=== PATIENT | male | born 1960 | race African-American/Black ===

== ENCOUNTER 2021-03-06 10:15 | Day surgery (SDC) | payer OTHER ==
[2021-03-06] MEDS ORDERED: FERRIC CARBOXYMALTOSE 750 MG in SODIUM CHLORIDE 250 ML IVPB ONE (10:30)
[2021-03-06 13:12] VITALS: BP 129/68; PULSE 85; TEMP 98
== END 2021-03-06 12:35 | disposition home or self-care (01) ==
LOC: FINFUSION 10:15 → FM/S 10:20 → FINFUSION 12:35
PROVIDERS: ATTEND Family Medicine
PROC: 3E033GC Introduction of Other Therapeutic Substance into Peripheral Vein, Percutaneous Approach (ICD-10-PCS; principal; 2021-03-06)
DX: D50.9 Iron deficiency anemia, unspecified (principal)
CPT/HCPCS: 96365; J1439

== ENCOUNTER 2021-03-13 10:53 | Day surgery (SDC) | payer OTHER ==
[2021-03-13] MEDS ORDERED: FERRIC CARBOXYMALTOSE 750 MG in SODIUM CHLORIDE 250 ML IVPB ONE (11:30)
[2021-03-13 12:23] VITALS: BP 119/73; PULSE 88; TEMP 98.4
== END 2021-03-13 12:40 | disposition home or self-care (01) ==
LOC: FINFUSION 10:53 → FM/S 10:58 → FINFUSION 12:40
PROVIDERS: ATTEND Family Medicine
PROC: 3E033GC Introduction of Other Therapeutic Substance into Peripheral Vein, Percutaneous Approach (ICD-10-PCS; principal; 2021-03-13)
DX: D64.9 Anemia, unspecified (principal); I10 Essential (primary) hypertension; K21.9 Gastro-esophageal reflux disease without esophagitis; J45.909 Unspecified asthma, uncomplicated; F06.4 Anxiety disorder due to known physiological condition
CPT/HCPCS: 96365; J1439

== ENCOUNTER 2021-09-14 13:02 | Inpatient (IN) | payer OTHER ==
[2021-09-14] MEDS ORDERED: NICOTINE 10 MG CARTRIDGE (INHALER) IH PRN (15:13)
[2021-09-14] MEDS ORDERED: ONDANSETRON *ODT* 4 MG TABLET SL PRN (15:13)
[2021-09-14] MEDS ORDERED: LOPERAMIDE HCL 2 MG CAPSULE PO PRN (15:13)
[2021-09-14] MEDS ORDERED: MENTHOL/PHENOL 1 EACH UD MM PRN (15:13)
[2021-09-14] MEDS ORDERED: MAG HYDROX/AL HYDROX/SIMETH 30 ML UNIT-DOSE CUP PO PRN (15:13)
[2021-09-14] MEDS ORDERED: ACETAMINOPHEN 325 MG TABLET (FP) PO PRN (15:13)
[2021-09-14] MEDS ORDERED: BISMUTH SUBSALICYLATE 524 MG/30 ML PO PRN (15:13)
[2021-09-14] MEDS ORDERED: MAGNESIUM CITRATE 300 ML BOTTLE PO PRN (15:13)
[2021-09-14] MEDS ORDERED: chlordiazePOXIDE HCL 25 MG CAPSULE PO PRN (15:13)
[2021-09-14] MEDS ORDERED: METHOCARBAMOL 500 MG TABLET PO PRN (15:13)
[2021-09-14] MEDS ORDERED: MAGNESIUM HYDROX 2400MG/30ML ORAL SUSPENSION 30 ML CUP PO PRN (15:13)
[2021-09-14] MEDS ORDERED: IBUPROFEN 400 MG TABLET (FP) PO PRN (15:13)
[2021-09-14] MEDS ORDERED: FLU VACC QS2021-22(6MOS UP)/PF 60 MCG/0.5 ML SYRINGE IM ONE (15:18)
[2021-09-14 15:41] VITALS: BMI 35.6
[2021-09-14] MEDS ORDERED: WITCH HAZEL 50% (TUCKS) 40 PAD/JAR PAD TP PRN (16:49)
[2021-09-14] MEDS ORDERED: cloNIDine HCL 0.1 MG TABLET PO ONE (18:38)
[2021-09-14] MEDS: hydrOXYzine PAMOATE 25 MG CAPSULE (FP) PO SCH ×2 (18:46→22:21)
[2021-09-14] MEDS: ATORVASTATIN CA 40 MG TABLET (FP) PO SCH (22:21)
[2021-09-14] MEDS: chlordiazePOXIDE HCL 25 MG CAPSULE PO SCH (22:21)
[2021-09-14] MEDS: MELATONIN 5 MG TABLETS PO SCH (22:21)
[2021-09-14] MEDS: THIAMINE HCL 100 MG TABLET (FP) PO SCH (22:21)
[2021-09-14] MEDS: ACETAMINOPHEN 325 MG TABLET (FP) PO PRN (22:23)
[2021-09-14] MEDS ORDERED: METOPROLOL TARTRATE 50 MG TABLET (FP) PO ONE (23:59)
[2021-09-15] MEDS: chlordiazePOXIDE HCL 25 MG CAPSULE PO SCH ×4 (05:53→22:13)
[2021-09-15] MEDS: hydrOXYzine PAMOATE 25 MG CAPSULE (FP) PO SCH ×5 (05:53→22:13)
[2021-09-15] MEDS: ACETAMINOPHEN 325 MG TABLET (FP) PO PRN (05:54)
[2021-09-15] MEDS: TAMSULOSIN HCL 0.4 MG CAP PO SCH (07:22)
[2021-09-15 10:01] LABS: HEMATOCRIT 31.1 % (35.4-49); HEMOGLOBIN 10.9 GM/dL (11.7-16.9); MEAN CELL VOLUME 108.5 fl (80-96); MEAN PLT VOLUME 10.1 fl (7.5-11.1); PLATELET COUNT 93 10^3/uL (134-434); RBC 2.87 M/mm3 (4.00-5.60); RDW 14.1 % (11.9-15.9); WHITE BLOOD COUNT 4.3 K/mm3 (4.0-10.0)
[2021-09-15 10:03] LABS: CALCIUM 8.3 mg/dL (8.5-10.1)
[2021-09-15 10:04] LABS: ALBUMIN 2.8 g/dl (3.4-5.0); BLOOD UREA NITROGEN 12.6 mg/dL (7-18)
[2021-09-15 10:08] LABS: BILIRUBIN,TOTAL 1.2 mg/dL (0.2-1); TOT PROT 6.3 g/dl (6.4-8.2)
[2021-09-15] MEDS: PRENATAL VITAMINS W/ FOLIC ACID TABLET (FP) PO SCH (10:16)
[2021-09-15] MEDS: amLODIPine BESYLATE 5 MG TABLET (FP) PO SCH (10:17)
[2021-09-15] MEDS: ASPIRIN COATED 81 MG TABLET.EC PO SCH (10:21)
[2021-09-15] MEDS ORDERED: PNEUMOCOCCAL 23 VACCINE 0.5 ML VIAL IM ONE (12:00)
[2021-09-15] MEDS ORDERED: FLU VACC QS2021-22(6MOS UP)/PF 60 MCG/0.5 ML SYRINGE IM ONE (12:00)
[2021-09-15] MEDS ORDERED: PNEUMOC 13-VAL CONJ-DIP CRM/PF 0.5 ML DISP.SYRIN IM ONE (12:00)
[2021-09-15] MEDS: FERROUS SO4 325 MG TABLET (FP) PO SCH (15:43)
[2021-09-15] MEDS: LOSARTAN POTASSIUM 50 MG TABLET PO SCH (15:43)
[2021-09-15] MEDS: ATORVASTATIN CA 40 MG TABLET (FP) PO SCH (22:13)
[2021-09-15] MEDS: MELATONIN 5 MG TABLETS PO SCH (22:13)
[2021-09-15] MEDS: THIAMINE HCL 100 MG TABLET (FP) PO SCH (22:13)
[2021-09-16] MEDS: hydrOXYzine PAMOATE 25 MG CAPSULE (FP) PO SCH ×5 (05:50→22:48)
[2021-09-16] MEDS: chlordiazePOXIDE HCL 25 MG CAPSULE PO SCH ×4 (05:50→22:48)
[2021-09-16] MEDS: ACETAMINOPHEN 325 MG TABLET (FP) PO PRN ×2 (05:52→22:49)
[2021-09-16] MEDS: TAMSULOSIN HCL 0.4 MG CAP PO SCH (07:06)
[2021-09-16 10:08] LABS: SARS-CoV-2 NAA Not Detected (Not Detected)
[2021-09-16] MEDS: ASPIRIN COATED 81 MG TABLET.EC PO SCH (10:14)
[2021-09-16] MEDS: LOSARTAN POTASSIUM 50 MG TABLET PO SCH (10:14)
[2021-09-16] MEDS: PRENATAL VITAMINS W/ FOLIC ACID TABLET (FP) PO SCH (10:14)
[2021-09-16] MEDS: amLODIPine BESYLATE 5 MG TABLET (FP) PO SCH (10:15)
[2021-09-16] MEDS: FERROUS SO4 325 MG TABLET (FP) PO SCH (10:15)
[2021-09-16] MEDS: PHENYLEPHRINE HCL/COCOA BUTTER SUPPOSITORY RC PRN (10:18)
[2021-09-16 14:10] LABS: CALCIUM 8.3 mg/dL (8.5-10.1)
[2021-09-16 14:11] LABS: BASO % 1.1 % (0-2.0); EOS % 9.8 % (0-4.5); HEMATOCRIT 31.2 % (35.4-49); HEMOGLOBIN 10.7 GM/dL (11.7-16.9); LYMPH % 33.9 % (8-40); MCH 37.6 pg (25.7-33.7); MCHC 34.3 g/dl (32.0-35.9); MEAN CELL VOLUME 109.6 fl (80-96); MEAN PLT VOLUME 9.8 fl (7.5-11.1); MONO % 10.1 % (3.8-10.2); NEUT % 45.1 % (42.8-82.8); PLATELET COUNT 84 10^3/uL (134-434); RBC 2.85 M/mm3 (4.00-5.60); RDW 14.6 % (11.9-15.9); WHITE BLOOD COUNT 4.3 K/mm3 (4.0-10.0)
[2021-09-16 14:11] LABS: ALBUMIN 2.8 g/dl (3.4-5.0); BLOOD UREA NITROGEN 10.6 mg/dL (7-18)
[2021-09-16 14:14] LABS: CREATININE 0.8 mg/dL (0.55-1.3)
[2021-09-16 14:16] LABS: BILIRUBIN,TOTAL 0.7 mg/dL (0.2-1); TOT PROT 6.2 g/dl (6.4-8.2)
[2021-09-16 14:51] LABS: ANISOCYTOSIS 2+; MACROCYTOSIS 2+
[2021-09-16] MEDS ORDERED: METOPROLOL TARTRATE 25 MG TABLET (FP) PO ONE (21:27)
[2021-09-16] MEDS: ATORVASTATIN CA 40 MG TABLET (FP) PO SCH (22:48)
[2021-09-16] MEDS: MELATONIN 5 MG TABLETS PO SCH (22:48)
[2021-09-16] MEDS: THIAMINE HCL 100 MG TABLET (FP) PO SCH (22:48)
[2021-09-17] MEDS ORDERED: chlordiazePOXIDE HCL 10 MG CAPSULE PO PRN
[2021-09-17] MEDS: chlordiazePOXIDE HCL 10 MG CAPSULE PO SCH ×4 (07:08→23:28)
[2021-09-17] MEDS: hydrOXYzine PAMOATE 25 MG CAPSULE (FP) PO SCH ×5 (07:09→23:28)
[2021-09-17] MEDS: TAMSULOSIN HCL 0.4 MG CAP PO SCH (07:09)
[2021-09-17] MEDS: LOSARTAN POTASSIUM 50 MG TABLET PO SCH (10:22)
[2021-09-17] MEDS: PRENATAL VITAMINS W/ FOLIC ACID TABLET (FP) PO SCH (10:22)
[2021-09-17] MEDS: ASPIRIN COATED 81 MG TABLET.EC PO SCH (10:22)
[2021-09-17] MEDS: amLODIPine BESYLATE 5 MG TABLET (FP) PO SCH (10:22)
[2021-09-17] MEDS: ACETAMINOPHEN 325 MG TABLET (FP) PO PRN ×2 (10:24→18:14)
[2021-09-17] MEDS: PHENYLEPHRINE HCL/COCOA BUTTER SUPPOSITORY RC PRN (10:25)
[2021-09-17] MEDS: FERROUS SO4 325 MG TABLET (FP) PO SCH (10:26)
[2021-09-17 12:08] LABS: SARS-CoV-2 NAA Not Detected (Not Detected)
[2021-09-17] MEDS ORDERED: cloNIDine HCL 0.1 MG TABLET PO ONE (17:23)
[2021-09-17] MEDS: THIAMINE HCL 100 MG TABLET (FP) PO SCH (23:28)
[2021-09-17] MEDS: MELATONIN 5 MG TABLETS PO SCH (23:29)
[2021-09-17] MEDS: ATORVASTATIN CA 40 MG TABLET (FP) PO SCH (23:29)
[2021-09-18] MEDS ORDERED: chlordiazePOXIDE HCL 10 MG CAPSULE PO SCH (05:00)
[2021-09-18] MEDS: hydrOXYzine PAMOATE 25 MG CAPSULE (FP) PO SCH ×2 (05:28→11:03)
[2021-09-18] MEDS: amLODIPine BESYLATE 10 MG TABLET (FP) PO SCH ×2 (05:28→11:03)
[2021-09-18] MEDS: ACETAMINOPHEN 325 MG TABLET (FP) PO PRN (05:30)
[2021-09-18] MEDS: TAMSULOSIN HCL 0.4 MG CAP PO SCH (07:00)
[2021-09-18 09:15] VITALS: BP 152/95; PULSE 79; TEMP 98
[2021-09-18] MEDS: PRENATAL VITAMINS W/ FOLIC ACID TABLET (FP) PO SCH (11:03)
[2021-09-18] MEDS: FERROUS SO4 325 MG TABLET (FP) PO SCH (11:04)
[2021-09-18] MEDS: LOSARTAN POTASSIUM 50 MG TABLET PO SCH (11:04)
[2021-09-18] MEDS: ASPIRIN COATED 81 MG TABLET.EC PO SCH (11:04)
[2021-09-19] MEDS ORDERED: chlordiazePOXIDE HCL 10 MG CAPSULE PO ONE (05:00)
== END 2021-09-18 11:08 | disposition home or self-care (01) | DRG 775 ==
LOC: YASAS 13:02 → Y3N 17:33
PROVIDERS: ADMIT Allergy & Immunology; ATTEND Allergy & Immunology
PROC: HZ2ZZZZ Detoxification Services for Substance Abuse Treatment (ICD-10-PCS; principal; 2021-09-14)
DX: F10.230 Alcohol dependence with withdrawal, uncomplicated (principal); F12.20 Cannabis dependence, uncomplicated; F17.210 Nicotine dependence, cigarettes, uncomplicated; F25.9 Schizoaffective disorder, unspecified; D61.818 Other pancytopenia; G20 Parkinson's disease; I10 Essential (primary) hypertension; N40.0 Benign prostatic hyperplasia without lower urinary tract symptoms; K64.9 Unspecified hemorrhoids; R74.8 Abnormal levels of other serum enzymes; E66.9 Obesity, unspecified; Z68.35 Body mass index [BMI] 35.0-35.9, adult
CPT/HCPCS: 36415; 80053; 85025; 85027; 86780; C9803; J0735; U0003; U0005

== ENCOUNTER 2022-01-30 14:21 | Inpatient (IN) | payer OTHER ==
[2022-01-30 18:00] VITALS: BMI 26.6
[2022-01-30] MEDS ORDERED: MAG HYDROX/AL HYDROX/SIMETH 30 ML UNIT-DOSE CUP PO PRN (19:21)
[2022-01-30] MEDS ORDERED: BENZOCAINE/MENTHOL (CHLORASEPTIC ) LOZENGE MM PRN (19:21)
[2022-01-30] MEDS ORDERED: LOPERAMIDE HCL 2 MG CAPSULE PO PRN (19:21)
[2022-01-30] MEDS ORDERED: MAGNESIUM CITRATE 300 ML BOTTLE PO PRN (19:21)
[2022-01-30] MEDS ORDERED: MAGNESIUM HYDROX 2400MG/30ML ORAL SUSPENSION 30 ML CUP PO PRN (19:21)
[2022-01-30] MEDS ORDERED: BISMUTH SUBSALICYLATE 524 MG/30 ML PO PRN (19:21)
[2022-01-30] MEDS ORDERED: ONDANSETRON *ODT* 4 MG TABLET SL PRN (19:21)
[2022-01-30] MEDS ORDERED: chlordiazePOXIDE HCL 25 MG CAPSULE PO PRN (19:21)
[2022-01-30] MEDS ORDERED: DICYCLOMINE HCL 10 MG CAPSULE PO PRN (19:21)
[2022-01-30] MEDS ORDERED: IBUPROFEN 400 MG TABLET (FP) PO PRN (19:21)
[2022-01-30] MEDS: hydrOXYzine PAMOATE 25 MG CAPSULE (FP) PO SCH (21:36)
[2022-01-30] MEDS: MELATONIN 5 MG TABLETS PO SCH (21:36)
[2022-01-30] MEDS: ATORVASTATIN CA 40 MG TABLET (FP) PO SCH (21:37)
[2022-01-30] MEDS: THIAMINE HCL 100 MG TABLET (FP) PO SCH (21:43)
[2022-01-30] MEDS: chlordiazePOXIDE HCL 25 MG CAPSULE PO SCH (22:26)
[2022-01-31] MEDS: hydrOXYzine PAMOATE 25 MG CAPSULE (FP) PO SCH ×5 (05:23→23:37)
[2022-01-31] MEDS: chlordiazePOXIDE HCL 25 MG CAPSULE PO SCH ×4 (05:23→23:37)
[2022-01-31] MEDS: TAMSULOSIN HCL 0.4 MG CAP PO SCH (10:19)
[2022-01-31] MEDS: amLODIPine BESYLATE 5 MG TABLET (FP) PO SCH (10:19)
[2022-01-31] MEDS: ASPIRIN COATED 81 MG TABLET.EC PO SCH (10:19)
[2022-01-31] MEDS: METHOCARBAMOL 500 MG TABLET PO PRN (10:20)
[2022-01-31] MEDS: PRENATAL VITAMINS W/ FOLIC ACID TABLET (FP) PO SCH (10:20)
[2022-01-31] MEDS: HYDROCORTISONE ACETATE 25 MG/SUPP.RECT PR SCH (10:25)
[2022-01-31 11:13] LABS: HEMATOCRIT 31.1 % (35.4-49); HEMOGLOBIN 10.5 GM/dL (11.7-16.9); MCH 37.4 pg (25.7-33.7); MCHC 33.7 g/dl (32.0-35.9); MEAN CELL VOLUME 110.9 fl (80-96); MEAN PLT VOLUME 8.8 fl (7.5-11.1); PLATELET COUNT 101 10^3/uL (134-434); RBC 2.81 M/mm3 (4.00-5.60); RDW 15.4 % (11.9-15.9); WHITE BLOOD COUNT 2.6 K/mm3 (4.0-10.0)
[2022-01-31 12:11] LABS: CALCIUM 8.5 mg/dL (8.5-10.1)
[2022-01-31 12:12] LABS: ALBUMIN 2.8 g/dl (3.4-5.0); BLOOD UREA NITROGEN 4.9 mg/dL (7-18)
[2022-01-31 12:15] LABS: CREATININE 0.7 mg/dL (0.55-1.3)
[2022-01-31 12:16] LABS: BILIRUBIN,TOTAL 1.1 mg/dL (0.2-1)
[2022-01-31 12:17] LABS: TOT PROT 6.3 g/dl (6.4-8.2)
[2022-01-31] MEDS: ATORVASTATIN CA 40 MG TABLET (FP) PO SCH (23:36)
[2022-01-31] MEDS: THIAMINE HCL 100 MG TABLET (FP) PO SCH (23:37)
[2022-01-31] MEDS: MELATONIN 5 MG TABLETS PO SCH (23:37)
[2022-02-01] MEDS: chlordiazePOXIDE HCL 25 MG CAPSULE PO SCH ×4 (05:14→22:27)
[2022-02-01] MEDS: hydrOXYzine PAMOATE 25 MG CAPSULE (FP) PO SCH ×5 (05:14→22:27)
[2022-02-01] MEDS: TAMSULOSIN HCL 0.4 MG CAP PO SCH (07:40)
[2022-02-01] MEDS: ACETAMINOPHEN 325 MG TABLET (FP) PO PRN ×2 (08:05→17:48)
[2022-02-01] MEDS: METHOCARBAMOL 500 MG TABLET PO PRN ×2 (08:06→22:29)
[2022-02-01] MEDS: amLODIPine BESYLATE 5 MG TABLET (FP) PO SCH (10:11)
[2022-02-01] MEDS: PRENATAL VITAMINS W/ FOLIC ACID TABLET (FP) PO SCH (10:11)
[2022-02-01] MEDS: ASPIRIN COATED 81 MG TABLET.EC PO SCH (10:11)
[2022-02-01] MEDS: IBUPROFEN 600 MG TABLET (FP) PO PRN (10:12)
[2022-02-01] MEDS: HYDROCORTISONE ACETATE 25 MG/SUPP.RECT PR SCH (10:13)
[2022-02-01] MEDS: NICOTINE 10 MG CARTRIDGE (INHALER) IH PRN (11:59)
[2022-02-01] MEDS: HYDROCHLOROTHIAZIDE 25 MG TABLET (FP) PO SCH (12:03)
[2022-02-01] MEDS: ATORVASTATIN CA 40 MG TABLET (FP) PO SCH (22:26)
[2022-02-01] MEDS: MELATONIN 5 MG TABLETS PO SCH (22:27)
[2022-02-01] MEDS: THIAMINE HCL 100 MG TABLET (FP) PO SCH (22:27)
[2022-02-02] MEDS ORDERED: chlordiazePOXIDE HCL 10 MG CAPSULE PO PRN
[2022-02-02] MEDS: NICOTINE 10 MG CARTRIDGE (INHALER) IH PRN (04:02)
[2022-02-02] MEDS: hydrOXYzine PAMOATE 25 MG CAPSULE (FP) PO SCH ×5 (06:15→22:35)
[2022-02-02] MEDS: chlordiazePOXIDE HCL 10 MG CAPSULE PO SCH ×4 (06:15→22:35)
[2022-02-02] MEDS: ACETAMINOPHEN 325 MG TABLET (FP) PO PRN ×2 (06:17→22:38)
[2022-02-02] MEDS: amLODIPine BESYLATE 5 MG TABLET (FP) PO SCH (10:42)
[2022-02-02] MEDS: LOSARTAN POTASSIUM 50 MG TABLET PO SCH (10:42)
[2022-02-02] MEDS: TAMSULOSIN HCL 0.4 MG CAP PO SCH (10:42)
[2022-02-02] MEDS: PRENATAL VITAMINS W/ FOLIC ACID TABLET (FP) PO SCH (10:42)
[2022-02-02] MEDS: HYDROCHLOROTHIAZIDE 25 MG TABLET (FP) PO SCH (10:42)
[2022-02-02] MEDS: ASPIRIN COATED 81 MG TABLET.EC PO SCH (10:42)
[2022-02-02] MEDS: IBUPROFEN 600 MG TABLET (FP) PO PRN (10:43)
[2022-02-02] MEDS: HYDROCORTISONE ACETATE 25 MG/SUPP.RECT PR SCH ×2 (10:44→23:38)
[2022-02-02] MEDS: METHOCARBAMOL 500 MG TABLET PO PRN (10:48)
[2022-02-02 11:41] LABS: EOS % 8.7 % (0-4.5); HEMATOCRIT 31.7 % (35.4-49); HEMOGLOBIN 10.6 GM/dL (11.7-16.9); MCH 37.8 pg (25.7-33.7); MCHC 33.4 g/dl (32.0-35.9); MEAN CELL VOLUME 113.4 fl (80-96); MEAN PLT VOLUME 9.2 fl (7.5-11.1); MONO % 15.5 % (3.8-10.2); NEUT % 43.8 % (42.8-82.8); PLATELET COUNT 97 10^3/uL (134-434); RDW 15.7 % (11.9-15.9); WHITE BLOOD COUNT 3.6 K/mm3 (4.0-10.0)
[2022-02-02 13:36] LABS: ANISOCYTOSIS 3+; MACROCYTOSIS 3+
[2022-02-02] MEDS: MELATONIN 5 MG TABLETS PO SCH (22:35)
[2022-02-02] MEDS: THIAMINE HCL 100 MG TABLET (FP) PO SCH (22:35)
[2022-02-02] MEDS: ATORVASTATIN CA 40 MG TABLET (FP) PO SCH (22:35)
[2022-02-03] MEDS: hydrOXYzine PAMOATE 25 MG CAPSULE (FP) PO SCH ×5 (05:05→22:21)
[2022-02-03] MEDS: chlordiazePOXIDE HCL 10 MG CAPSULE PO SCH ×2 (05:05→18:18)
[2022-02-03] MEDS: ACETAMINOPHEN 325 MG TABLET (FP) PO PRN ×2 (05:06→10:46)
[2022-02-03] MEDS: ASPIRIN COATED 81 MG TABLET.EC PO SCH (10:42)
[2022-02-03] MEDS: HYDROCHLOROTHIAZIDE 25 MG TABLET (FP) PO SCH (10:42)
[2022-02-03] MEDS: amLODIPine BESYLATE 5 MG TABLET (FP) PO SCH (10:42)
[2022-02-03] MEDS: LOSARTAN POTASSIUM 50 MG TABLET PO SCH (10:42)
[2022-02-03] MEDS: TAMSULOSIN HCL 0.4 MG CAP PO SCH (10:42)
[2022-02-03] MEDS: PRENATAL VITAMINS W/ FOLIC ACID TABLET (FP) PO SCH (10:42)
[2022-02-03] MEDS: MELATONIN 5 MG TABLETS PO SCH (22:21)
[2022-02-03] MEDS: ATORVASTATIN CA 40 MG TABLET (FP) PO SCH (22:21)
[2022-02-03] MEDS: THIAMINE HCL 100 MG TABLET (FP) PO SCH (22:21)
[2022-02-03] MEDS: HYDROCORTISONE ACETATE 25 MG/SUPP.RECT PR SCH (22:22)
[2022-02-04] MEDS ORDERED: chlordiazePOXIDE HCL 10 MG CAPSULE PO ONE (05:00)
[2022-02-04] MEDS: hydrOXYzine PAMOATE 25 MG CAPSULE (FP) PO SCH ×2 (05:47→10:10)
[2022-02-04] MEDS: ACETAMINOPHEN 325 MG TABLET (FP) PO PRN (05:49)
[2022-02-04] MEDS: TAMSULOSIN HCL 0.4 MG CAP PO SCH (07:47)
[2022-02-04 09:38] VITALS: BP 147/83; PULSE 69; TEMP 96.9
[2022-02-04] MEDS: PRENATAL VITAMINS W/ FOLIC ACID TABLET (FP) PO SCH (10:10)
[2022-02-04] MEDS: HYDROCHLOROTHIAZIDE 25 MG TABLET (FP) PO SCH (10:10)
[2022-02-04] MEDS: amLODIPine BESYLATE 5 MG TABLET (FP) PO SCH (10:10)
[2022-02-04] MEDS: LOSARTAN POTASSIUM 50 MG TABLET PO SCH (10:10)
[2022-02-04] MEDS: ASPIRIN COATED 81 MG TABLET.EC PO SCH (10:10)
== END 2022-02-04 10:18 | disposition home or self-care (01) | DRG 774 ==
LOC: YASAS 14:21 → Y6N 19:51
PROVIDERS: ADMIT Allergy & Immunology; ATTEND Surgery
PROC: HZ2ZZZZ Detoxification Services for Substance Abuse Treatment (ICD-10-PCS; principal; 2022-01-30)
DX: F10.230 Alcohol dependence with withdrawal, uncomplicated (principal); F14.20 Cocaine dependence, uncomplicated; F12.20 Cannabis dependence, uncomplicated; F17.210 Nicotine dependence, cigarettes, uncomplicated; F25.9 Schizoaffective disorder, unspecified; G20 Parkinson's disease; E78.5 Hyperlipidemia, unspecified; I10 Essential (primary) hypertension; K64.9 Unspecified hemorrhoids; N40.0 Benign prostatic hyperplasia without lower urinary tract symptoms
CPT/HCPCS: 36415; 80053; 85025; 85027; 86780; C9803-CS; U0003; U0005

== ENCOUNTER 2022-09-20 19:52 | Inpatient (IN) | payer OTHER ==
[2022-09-20 20:47] VITALS: BMI 37.2
[2022-09-20] MEDS ORDERED: DICYCLOMINE HCL 10 MG CAPSULE PO PRN (21:21)
[2022-09-20] MEDS ORDERED: MAG HYDROX/AL HYDROX/SIMETH 30 ML UNIT-DOSE CUP PO PRN (21:21)
[2022-09-20] MEDS ORDERED: BENZOCAINE/MENTHOL (CHLORASEPTIC ) LOZENGE MM PRN (21:21)
[2022-09-20] MEDS ORDERED: NICOTINE POLACRILEX 2 MG GUM BUC PRN (21:21)
[2022-09-20] MEDS ORDERED: P-EPHED 60MG/TRIPROLIDI 2.5MG TABLET PO PRN (21:21)
[2022-09-20] MEDS ORDERED: POLYETHYLENE GLYCOL (HEALTHYLAX) 3350 17 GM PACKET PO PRN (21:21)
[2022-09-20] MEDS ORDERED: MAGNESIUM HYDROX 2400MG/30ML ORAL SUSPENSION 30 ML CUP PO PRN (21:21)
[2022-09-20] MEDS ORDERED: MELATONIN 5 MG TABLETS PO PRN (21:21)
[2022-09-20] MEDS ORDERED: LOPERAMIDE HCL 2 MG CAPSULE PO PRN (21:21)
[2022-09-20] MEDS ORDERED: guaiFENesin 200 MG/10 ML 10 ML UNIT-DOSE CUPS PO PRN (21:21)
[2022-09-20] MEDS ORDERED: hydrOXYzine PAMOATE 25 MG CAPSULE (FP) PO PRN (21:21)
[2022-09-20] MEDS ORDERED: ONDANSETRON *ODT* 4 MG TABLET SL PRN (21:21)
[2022-09-20] MEDS ORDERED: BISMUTH SUBSALICYLATE 524 MG/30 ML PO PRN (21:21)
[2022-09-20] MEDS ORDERED: IBUPROFEN 400 MG TABLET (FP) PO PRN (21:21)
[2022-09-20] MEDS ORDERED: valACYclovir HCL 500 MG TABLET (FP) PO ONE ×2 (22:00→23:46)
[2022-09-20] MEDS: BACITRACIN 0.9 GM PACKET TP SCH (23:27)
[2022-09-20] MEDS: ATORVASTATIN CA 40 MG TABLET (FP) PO SCH (23:27)
[2022-09-20] MEDS: ASPIRIN COATED 81 MG TABLET.EC PO SCH (23:28)
[2022-09-20] MEDS: amLODIPine BESYLATE 5 MG TABLET (FP) PO SCH (23:36)
[2022-09-20] MEDS: THIAMINE HCL 100 MG TABLET (FP) PO SCH (23:40)
[2022-09-21] MEDS: TAMSULOSIN HCL 0.4 MG CAP PO SCH (08:39)
[2022-09-21] MEDS: amLODIPine BESYLATE 5 MG TABLET (FP) PO SCH (09:34)
[2022-09-21] MEDS: BACITRACIN 0.9 GM PACKET TP SCH ×2 (09:34→22:17)
[2022-09-21] MEDS: valACYclovir HCL 500 MG TABLET (FP) PO SCH (09:34)
[2022-09-21] MEDS: HYDROCHLOROTHIAZIDE 25 MG TABLET (FP) PO SCH (09:34)
[2022-09-21] MEDS: ASPIRIN COATED 81 MG TABLET.EC PO SCH (09:34)
[2022-09-21] MEDS: FERROUS SO4 325 MG TABLET (FP) PO SCH (09:35)
[2022-09-21] MEDS: PRENATAL VITAMINS W/ FOLIC ACID TABLET (FP) PO SCH (09:35)
[2022-09-21] MEDS ORDERED: FOLIC ACID 1 MG TABLET (FP) PO SCH (10:00)
[2022-09-21 11:10] LABS: HEMATOCRIT 38.4 % (35.4-49); HEMOGLOBIN 13.1 GM/dL (11.7-16.9); MCH 35.8 pg (25.7-33.7); MEAN CELL VOLUME 105.2 fl (80-96); PLATELET COUNT 110 10^3/uL (134-434); RBC 3.65 M/mm3 (4.00-5.60); RDW 13.7 % (11.9-15.9)
[2022-09-21 11:12] LABS: ALBUMIN 3.3 g/dl (3.4-5.0); BLOOD UREA NITROGEN 9.8 mg/dL (7-18); CALCIUM 8.4 mg/dL (8.5-10.1)
[2022-09-21 11:14] LABS: CREATININE 0.7 mg/dL (0.55-1.3)
[2022-09-21 11:16] LABS: BILIRUBIN,TOTAL 0.9 mg/dL (0.2-1); TOT PROT 7.2 g/dl (6.4-8.2)
[2022-09-21] MEDS: ATORVASTATIN CA 40 MG TABLET (FP) PO SCH (22:18)
[2022-09-21] MEDS: THIAMINE HCL 100 MG TABLET (FP) PO SCH (22:18)
[2022-09-22] MEDS: TAMSULOSIN HCL 0.4 MG CAP PO SCH (08:59)
[2022-09-22 09:44] VITALS: RESP 18
[2022-09-22] MEDS: BACITRACIN 0.9 GM PACKET TP SCH (10:11)
[2022-09-22] MEDS: ASPIRIN COATED 81 MG TABLET.EC PO SCH (10:12)
[2022-09-22] MEDS: amLODIPine BESYLATE 5 MG TABLET (FP) PO SCH (10:12)
[2022-09-22] MEDS: PRENATAL VITAMINS W/ FOLIC ACID TABLET (FP) PO SCH (10:12)
[2022-09-22] MEDS: FERROUS SO4 325 MG TABLET (FP) PO SCH (10:13)
[2022-09-22] MEDS: HYDROCHLOROTHIAZIDE 25 MG TABLET (FP) PO SCH (10:13)
[2022-09-22] MEDS: valACYclovir HCL 500 MG TABLET (FP) PO SCH (10:17)
[2022-09-22 20:11] VITALS: BP 155/85; PULSE 88; TEMP 97.1
== END 2022-09-22 20:10 | disposition other institution (70) | DRG 775 ==
LOC: YASAS 19:52 → Y6N 21:52
PROVIDERS: ADMIT Allergy & Immunology; ATTEND Surgery
PROC: HZ2ZZZZ Detoxification Services for Substance Abuse Treatment (ICD-10-PCS; principal; 2022-09-20)
DX: F10.20 Alcohol dependence, uncomplicated (principal); F12.20 Cannabis dependence, uncomplicated; F17.210 Nicotine dependence, cigarettes, uncomplicated; F25.9 Schizoaffective disorder, unspecified; D69.6 Thrombocytopenia, unspecified; G20 Parkinson's disease; I10 Essential (primary) hypertension; E78.00 Pure hypercholesterolemia, unspecified; K64.9 Unspecified hemorrhoids; N40.0 Benign prostatic hyperplasia without lower urinary tract symptoms; E66.9 Obesity, unspecified; Z68.37 Body mass index [BMI] 37.0-37.9, adult
CPT/HCPCS: 36415; 71046-TC-FY; 80053; 85027; 86780; 87811; C9803-CS; U0003; U0005

== ENCOUNTER 2022-09-22 20:18 | Inpatient (IN) | payer OTHER ==
[2022-09-22] MEDS ORDERED: BENZOCAINE/MENTHOL (CHLORASEPTIC ) LOZENGE MM PRN (22:22)
[2022-09-22] MEDS ORDERED: ACETAMINOPHEN 325 MG TABLET (FP) PO PRN (22:22)
[2022-09-22] MEDS ORDERED: MELATONIN 5 MG TABLETS PO PRN (22:22)
[2022-09-22] MEDS ORDERED: MAGNESIUM HYDROX 2400MG/30ML ORAL SUSPENSION 30 ML CUP PO PRN (22:22)
[2022-09-22] MEDS ORDERED: MAG HYDROX/AL HYDROX/SIMETH 30 ML UNIT-DOSE CUP PO PRN (22:22)
[2022-09-22] MEDS ORDERED: guaiFENesin 200 MG/10 ML 10 ML UNIT-DOSE CUPS PO PRN (22:22)
[2022-09-22] MEDS ORDERED: LOPERAMIDE HCL 2 MG CAPSULE PO PRN (22:22)
[2022-09-22] MEDS ORDERED: POLYETHYLENE GLYCOL (HEALTHYLAX) 3350 17 GM PACKET PO PRN (22:22)
[2022-09-22] MEDS ORDERED: P-EPHED 60MG/TRIPROLIDI 2.5MG TABLET PO PRN (22:22)
[2022-09-23] MEDS: IBUPROFEN 400 MG TABLET (FP) PO PRN ×2 (06:23→21:37)
[2022-09-23] MEDS: HYDROCHLOROTHIAZIDE 25 MG TABLET (FP) PO SCH (09:08)
[2022-09-23] MEDS: ASPIRIN COATED 81 MG TABLET.EC PO SCH (09:08)
[2022-09-23] MEDS: FERROUS SO4 325 MG TABLET (FP) PO SCH (09:08)
[2022-09-23] MEDS: TAMSULOSIN HCL 0.4 MG CAP PO SCH (09:08)
[2022-09-23] MEDS: amLODIPine BESYLATE 5 MG TABLET (FP) PO SCH (09:08)
[2022-09-23] MEDS: DOCUSATE SODIUM 100 MG CAPSULE (FP) PO PRN ×2 (09:09→21:36)
[2022-09-23] MEDS: valACYclovir HCL 500 MG TABLET (FP) PO SCH (09:09)
[2022-09-23] MEDS: MULTIVITAMINS (DAILY MVI) TABLET (FP) PO SCH (09:58)
[2022-09-23] MEDS ORDERED: PRENATAL VITAMINS W/ FOLIC ACID TABLET (FP) PO SCH (10:00)
[2022-09-23] MEDS ORDERED: PNEUMOC 20-VAL CONJ-DIP CRM/PF 0.5 ML SYRINGE IM ONE (12:00)
[2022-09-23] MEDS ORDERED: FLU VACC QS2022-23(6MOS UP)/PF 60 MCG/0.5 ML SYRINGE IM ONE (12:00)
[2022-09-23] MEDS: THIAMINE HCL 100 MG TABLET (FP) PO SCH (21:36)
[2022-09-24] MEDS: IBUPROFEN 400 MG TABLET (FP) PO PRN (06:40)
[2022-09-24] MEDS: DOCUSATE SODIUM 100 MG CAPSULE (FP) PO PRN ×2 (06:40→21:21)
[2022-09-24] MEDS: TAMSULOSIN HCL 0.4 MG CAP PO SCH (08:55)
[2022-09-24] MEDS: valACYclovir HCL 500 MG TABLET (FP) PO SCH (09:46)
[2022-09-24] MEDS: FERROUS SO4 325 MG TABLET (FP) PO SCH (09:46)
[2022-09-24] MEDS: HYDROCHLOROTHIAZIDE 25 MG TABLET (FP) PO SCH (09:46)
[2022-09-24] MEDS: amLODIPine BESYLATE 5 MG TABLET (FP) PO SCH (09:46)
[2022-09-24] MEDS: ASPIRIN COATED 81 MG TABLET.EC PO SCH (09:46)
[2022-09-24] MEDS: MULTIVITAMINS (DAILY MVI) TABLET (FP) PO SCH (09:48)
[2022-09-24] MEDS ORDERED: hydrOXYzine PAMOATE 25 MG CAPSULE (FP) PO PRN (10:26)
[2022-09-24] MEDS ORDERED: MINERAL OIL/PETROLAT/WATER TOPICAL CREAM 454 GM JAR TP PRN (10:27)
[2022-09-24] MEDS ORDERED: IBUPROFEN 400 MG TABLET (FP) PO PRN (10:27)
[2022-09-24] MEDS ORDERED: THIAMINE HCL 200 MG/2 ML VIAL IM ONE (11:30)
[2022-09-24] MEDS ORDERED: amLODIPine BESYLATE 5 MG TABLET (FP) PO ONE (12:30)
[2022-09-24] MEDS: THIAMINE HCL 100 MG TABLET (FP) PO SCH (21:21)
[2022-09-25] MEDS: DOCUSATE SODIUM 100 MG CAPSULE (FP) PO PRN (06:30)
[2022-09-25] MEDS: valACYclovir HCL 500 MG TABLET (FP) PO SCH (09:31)
[2022-09-25] MEDS: MULTIVITAMINS (DAILY MVI) TABLET (FP) PO SCH (09:31)
[2022-09-25] MEDS: HYDROCHLOROTHIAZIDE 25 MG TABLET (FP) PO SCH (09:31)
[2022-09-25] MEDS: TAMSULOSIN HCL 0.4 MG CAP PO SCH (09:31)
[2022-09-25] MEDS: ASPIRIN COATED 81 MG TABLET.EC PO SCH (09:31)
[2022-09-25] MEDS ORDERED: amLODIPine BESYLATE 10 MG TABLET (FP) PO SCH (10:00)
[2022-09-25 10:41] LABS: ALBUMIN 3.6 g/dl (3.4-5.0); CREATININE 0.9 mg/dL (0.55-1.3)
[2022-09-25 10:42] LABS: BLOOD UREA NITROGEN 24.4 mg/dL (7-18); CALCIUM 9.4 mg/dL (8.5-10.1)
[2022-09-25 10:43] LABS: BILIRUBIN,TOTAL 1.1 mg/dL (0.2-1); TOT PROT 7.8 g/dl (6.4-8.2)
[2022-09-25 11:15] VITALS: BP 148/77; PULSE 68; RESP 18; TEMP 97.1
== END 2022-09-25 12:21 | disposition short-term general hospital (02) | DRG 772 ==
LOC: YASAS 20:18 → Y3E 20:19
PROVIDERS: ADMIT Allergy & Immunology; ATTEND Psychiatry & Neurology Pain Medicine
PROC: HZ42ZZZ Group Counseling for Substance Abuse Treatment, Cognitive-Behavioral (ICD-10-PCS; principal; 2022-09-22)
DX: F10.20 Alcohol dependence, uncomplicated (principal); F12.20 Cannabis dependence, uncomplicated; F17.210 Nicotine dependence, cigarettes, uncomplicated; I21.3 ST elevation (STEMI) myocardial infarction of unspecified site; I10 Essential (primary) hypertension; G20 Parkinson's disease; K21.9 Gastro-esophageal reflux disease without esophagitis; M17.11 Unilateral primary osteoarthritis, right knee; E66.9 Obesity, unspecified
CPT/HCPCS: 36415; 80053; 90677; 93005; 93010; G0008; Q2036

== ENCOUNTER 2022-12-05 20:46 | Inpatient (IN) | payer OTHER ==
[2022-12-05 21:31] LABS: BASO % 0.9 % (0-2.0); EOS % 11.1 % (0-4.5); HEMATOCRIT 32.4 % (35.4-49); HEMOGLOBIN 11.3 GM/dL (11.7-16.9); LYMPH % 28.6 % (8-40); MCH 38.3 pg (25.7-33.7); MCHC 34.9 g/dl (32.0-35.9); MEAN CELL VOLUME 109.5 fl (80-96); MONO % 14.6 % (3.8-10.2); NEUT % 44.8 % (42.8-82.8); PLATELET COUNT 102 10^3/uL (134-434); RBC 2.96 M/mm3 (4.00-5.60); RDW 15.3 % (11.9-15.9); WHITE BLOOD COUNT 5.4 K/mm3 (4.0-10.0)
[2022-12-05 21:49] LABS: POTASSIUM 3.8 mmol/L (3.5-5.1)
[2022-12-05 21:51] LABS: ALBUMIN 3.1 g/dl (3.4-5.0); CALCIUM 8.3 mg/dL (8.5-10.1); MAGNESIUM 1.5 mg/dL (1.8-2.4)
[2022-12-05 21:55] LABS: CREATININE 0.9 mg/dL (0.55-1.3)
[2022-12-05 21:57] LABS: BILIRUBIN,TOTAL 1.3 mg/dL (0.2-1)
[2022-12-05 22:00] LABS: N-TERMINAL BNP 111.4 pg/ml (5-125)
[2022-12-05 22:38] LABS: ANISOCYTOSIS 2+; MACROCYTOSIS 2+; TARGET CELLS 1+
[2022-12-05 23:41] LABS: EPI CELLS 4 /uL (0-25.1); HYALINE CASTS 0 /uL (0-3.1); URINE APPEARANCE CLEAR; URINE BACTERIA 7 /uL (0-1359); URINE BILIRUBIN NEGATIVE (NEGATIVE); URINE COLOR YELLOW; URINE GLUCOSE (UA) NEGATIVE (NEGATIVE); URINE KETONE NEGATIVE (NEGATIVE); URINE LEUK ESTERASE TRACE (NEGATIVE); URINE NITRITE NEGATIVE (NEGATIVE); URINE PROTEIN TRACE (NEGATIVE); URINE RBC 4 /uL (0-23.9); URINE WBC 12 /uL (0-25.8)
[2022-12-06] MEDS ORDERED: MAGNESIUM SULF 50% (8.12 MEQ/2 ML-1 GM VIAL) IVPB ONE (00:52)
[2022-12-06] MEDS ORDERED: MAGNESIUM SULFATE IN WATER 2 GM/50 ML IVPB IVPB ONE (00:59)
[2022-12-06] MEDS ORDERED: FOLIC ACID INJECTION - 1 MG, THIAMINE HCL 100 MG, MULTIVIT INJECTION ADULT 10 ML in SOD... IVPB ONE (02:00)
[2022-12-06] MEDS ORDERED: MELATONIN 5 MG TABLETS PO ONE (05:26)
[2022-12-06] MEDS: ALBUTEROL SO4 0.083% IH SOL 2.5 MG/3 ML VIAL.NEB. NEB PRN ×2 (05:35→20:34)
[2022-12-06 06:44] LABS: BASO % 0.9 % (0-2.0); EOS % 11.5 % (0-4.5); HEMATOCRIT 31.3 % (35.4-49); HEMOGLOBIN 11.3 GM/dL (11.7-16.9); LYMPH % 26.9 % (8-40); MCH 39.4 pg (25.7-33.7); MCHC 36.2 g/dl (32.0-35.9); MEAN CELL VOLUME 108.9 fl (80-96); MEAN PLT VOLUME 8.4 fl (7.5-11.1); MONO % 15.5 % (3.8-10.2); NEUT % 45.2 % (42.8-82.8); PLATELET COUNT 102 10^3/uL (134-434); RBC 2.87 M/mm3 (4.00-5.60); RDW 15.2 % (11.9-15.9); WHITE BLOOD COUNT 4.6 K/mm3 (4.0-10.0)
[2022-12-06] MEDS ORDERED: LORazepam 2 MG/ML SDV VIAL IVPUSH PRN (06:47)
[2022-12-06 06:55] LABS: POTASSIUM 4.4 mmol/L (3.5-5.1)
[2022-12-06 06:58] LABS: BLOOD UREA NITROGEN 6.6 mg/dL (7-18); CALCIUM 8.5 mg/dL (8.5-10.1)
[2022-12-06 07:02] LABS: BILIRUBIN,TOTAL 1.2 mg/dL (0.2-1); CREATININE 0.9 mg/dL (0.55-1.3)
[2022-12-06 07:04] LABS: TOT PROT 6.6 g/dl (6.4-8.2)
[2022-12-06 10:03] VITALS: BMI 36.1
[2022-12-06] MEDS: chlordiazePOXIDE HCL 25 MG CAPSULE PO SCH ×3 (10:10→22:57)
[2022-12-06] MEDS: THIAMINE HCL 100 MG TABLET (FP) PO SCH (10:10)
[2022-12-06] MEDS: MULTIVITAMINS (DAILY MVI) TABLET (FP) PO SCH (10:10)
[2022-12-06] MEDS: FOLIC ACID 1 MG TABLET (FP) PO SCH (10:10)
[2022-12-06] MEDS ORDERED: ACETAMINOPHEN 325 MG TABLET (FP) PO ONE (12:30)
[2022-12-06] MEDS: HYDROCHLOROTHIAZIDE 25 MG TABLET (FP) PO SCH (12:39)
[2022-12-06] MEDS: amLODIPine BESYLATE 10 MG TABLET (FP) PO SCH (12:39)
[2022-12-06] MEDS: LOSARTAN POTASSIUM 50 MG TABLET PO SCH (12:39)
[2022-12-06] MEDS ORDERED: MAGNESIUM 2GM/50ML STERILE WATER IVPB IVPB ONE (18:00)
[2022-12-06] MEDS: traZODone HCL 50 MG TABLET (FP) PO SCH (22:57)
[2022-12-07] MEDS: ALBUTEROL SO4 0.083% IH SOL 2.5 MG/3 ML VIAL.NEB. NEB PRN (04:53)
[2022-12-07] MEDS: chlordiazePOXIDE HCL 25 MG CAPSULE PO SCH ×4 (05:44→22:22)
[2022-12-07 06:52] LABS: HEMATOCRIT 32.5 % (35.4-49); HEMOGLOBIN 11.5 GM/dL (11.7-16.9); MCH 39.1 pg (25.7-33.7); MCHC 35.5 g/dl (32.0-35.9); MEAN CELL VOLUME 110.1 fl (80-96); MEAN PLT VOLUME 8.9 fl (7.5-11.1); PLATELET COUNT 92 10^3/uL (134-434); RBC 2.95 M/mm3 (4.00-5.60); RDW 14.7 % (11.9-15.9); WHITE BLOOD COUNT 5.4 K/mm3 (4.0-10.0)
[2022-12-07 07:14] LABS: POTASSIUM 3.7 mmol/L (3.5-5.1)
[2022-12-07 07:19] LABS: ALBUMIN 2.8 g/dl (3.4-5.0); CALCIUM 8.8 mg/dL (8.5-10.1); MAGNESIUM 1.5 mg/dL (1.8-2.4)
[2022-12-07 07:22] LABS: CREATININE 0.9 mg/dL (0.55-1.3)
[2022-12-07 07:24] LABS: BILIRUBIN,TOTAL 1.5 mg/dL (0.2-1); TOT PROT 6.3 g/dl (6.4-8.2)
[2022-12-07] MEDS: LOSARTAN POTASSIUM 50 MG TABLET PO SCH (09:00)
[2022-12-07] MEDS: amLODIPine BESYLATE 10 MG TABLET (FP) PO SCH (09:00)
[2022-12-07] MEDS ORDERED: REGADENOSON 0.4 MG/5 ML PRE-FILLED SYRINGE IVPUSH ONE ×2 (09:52→10:15)
[2022-12-07] MEDS: MULTIVITAMINS (DAILY MVI) TABLET (FP) PO SCH (12:04)
[2022-12-07] MEDS: FOLIC ACID 1 MG TABLET (FP) PO SCH (12:04)
[2022-12-07] MEDS: ASPIRIN COATED 81 MG TABLET.EC PO SCH (12:04)
[2022-12-07] MEDS: HYDROCHLOROTHIAZIDE 25 MG TABLET (FP) PO SCH (12:04)
[2022-12-07] MEDS: THIAMINE HCL 100 MG TABLET (FP) PO SCH (12:04)
[2022-12-07] MEDS: methylPREDNISolone NA SUCC 40 MG/1 ML VIAL IVPUSH SCH (12:29)
[2022-12-07] MEDS: ACETAMINOPHEN 325 MG TABLET (FP) PO PRN ×2 (12:29→22:22)
[2022-12-07] MEDS ORDERED: MAGNESIUM SULF 50% (8.12 MEQ/2 ML-1 GM VIAL) IVPB ONE (13:29)
[2022-12-07] MEDS: BUDESONIDE/FORMETEROL FUMARATE 160/4.5 mcg INHALER IH SCH ×2 (13:33→22:27)
[2022-12-07] MEDS: ALBUTEROL SO4 2.5/IPRATROPIUM 0.5 INH SOL 3 ML VIAL.NEB. NEB SCH ×2 (16:00→20:05)
[2022-12-07] MEDS: traZODone HCL 50 MG TABLET (FP) PO SCH (22:22)
[2022-12-08] MEDS: chlordiazePOXIDE HCL 25 MG CAPSULE PO SCH ×3 (05:47→13:24)
[2022-12-08] MEDS: ALBUTEROL SO4 2.5/IPRATROPIUM 0.5 INH SOL 3 ML VIAL.NEB. NEB SCH ×3 (08:30→20:22)
[2022-12-08 09:08] LABS: BASO % 0.2 % (0-2.0); EOS % 0.2 % (0-4.5); LYMPH % 10.5 % (8-40); MCHC 35.1 g/dl (32.0-35.9); MONO % 8.5 % (3.8-10.2); NEUT % 80.6 % (42.8-82.8); PLATELET COUNT 93 10^3/uL (134-434); RBC 3.07 M/mm3 (4.00-5.60); RDW 15.3 % (11.9-15.9); WHITE BLOOD COUNT 6.5 K/mm3 (4.0-10.0)
[2022-12-08 09:30] LABS: POTASSIUM 3.9 mmol/L (3.5-5.1)
[2022-12-08 09:31] LABS: CALCIUM 8.8 mg/dL (8.5-10.1)
[2022-12-08 09:32] LABS: BLOOD UREA NITROGEN 8.2 mg/dL (7-18)
[2022-12-08 09:35] LABS: CREATININE 0.8 mg/dL (0.55-1.3)
[2022-12-08 09:37] LABS: BILIRUBIN,TOTAL 0.8 mg/dL (0.2-1); TOT PROT 7.2 g/dl (6.4-8.2)
[2022-12-08] MEDS: ASPIRIN COATED 81 MG TABLET.EC PO SCH (09:54)
[2022-12-08] MEDS: LOSARTAN POTASSIUM 50 MG TABLET PO SCH (09:54)
[2022-12-08] MEDS: MULTIVITAMINS (DAILY MVI) TABLET (FP) PO SCH (09:54)
[2022-12-08] MEDS: amLODIPine BESYLATE 10 MG TABLET (FP) PO SCH (09:54)
[2022-12-08] MEDS: FOLIC ACID 1 MG TABLET (FP) PO SCH (09:54)
[2022-12-08] MEDS: methylPREDNISolone NA SUCC 40 MG/1 ML VIAL IVPUSH SCH (09:54)
[2022-12-08] MEDS: THIAMINE HCL 100 MG TABLET (FP) PO SCH (09:54)
[2022-12-08] MEDS: BUDESONIDE/FORMETEROL FUMARATE 160/4.5 mcg INHALER IH SCH ×3 (09:55→23:10)
[2022-12-08] MEDS ORDERED: SODIUM CHLORIDE 1,000 ML IV SCH ×2 (12:45→21:30)
[2022-12-08] MEDS ORDERED: MAGNESIUM 2GM/50ML STERILE WATER IVPB IVPB ONE (13:00)
[2022-12-08] MEDS: ACETAMINOPHEN 325 MG TABLET (FP) PO PRN (14:31)
[2022-12-08] MEDS: PANTOPRAZOLE 40 MG TABLET PO SCH (18:42)
[2022-12-08] MEDS: chlordiazePOXIDE HCL 10 MG CAPSULE PO SCH (21:00)
[2022-12-08] MEDS: traZODone HCL 50 MG TABLET (FP) PO SCH (21:00)
[2022-12-08] MEDS ORDERED: ALBUTEROL SO4 0.083% IH SOL 2.5 MG/3 ML VIAL.NEB. NEB PRN (21:30)
[2022-12-08] MEDS ORDERED: traZODone HCL 50 MG TABLET (FP) PO SCH (22:00)
[2022-12-09 04:24] VITALS: RESP 18
[2022-12-09] MEDS: chlordiazePOXIDE HCL 10 MG CAPSULE PO SCH (06:17)
[2022-12-09] MEDS ORDERED: ALBUTEROL SO4 2.5/IPRATROPIUM 0.5 INH SOL 3 ML VIAL.NEB. NEB SCH (08:00)
[2022-12-09 08:32] VITALS: BP 147/83; PULSE 74; TEMP 98.2
[2022-12-09 08:52] LABS: POTASSIUM 4.3 mmol/L (3.5-5.1)
[2022-12-09 08:57] LABS: BLOOD UREA NITROGEN 13.2 mg/dL (7-18)
[2022-12-09 08:58] LABS: CALCIUM 9.2 mg/dL (8.5-10.1)
[2022-12-09 08:59] LABS: ALBUMIN 3.1 g/dl (3.4-5.0)
[2022-12-09 09:01] LABS: BILIRUBIN,DIRECT 0.4 mg/dL (0.0-0.2)
[2022-12-09 09:02] LABS: CREATININE 0.7 mg/dL (0.55-1.3)
[2022-12-09 09:04] LABS: BILIRUBIN,TOTAL 0.7 mg/dL (0.2-1)
[2022-12-09] MEDS ORDERED: THIAMINE HCL 100 MG TABLET (FP) PO SCH (10:00)
[2022-12-09] MEDS ORDERED: ASPIRIN COATED 81 MG TABLET.EC PO SCH (10:00)
[2022-12-09] MEDS ORDERED: FOLIC ACID 1 MG TABLET (FP) PO SCH (10:00)
[2022-12-09] MEDS ORDERED: amLODIPine BESYLATE 10 MG TABLET (FP) PO SCH (10:00)
[2022-12-09] MEDS ORDERED: MULTIVITAMINS (DAILY MVI) TABLET (FP) PO SCH (10:00)
[2022-12-09] MEDS ORDERED: LOSARTAN POTASSIUM 50 MG TABLET PO SCH (10:00)
[2022-12-09] MEDS: PANTOPRAZOLE 40 MG TABLET PO SCH (10:05)
[2022-12-09] MEDS: BUDESONIDE/FORMETEROL FUMARATE 160/4.5 mcg INHALER IH SCH (10:06)
== END 2022-12-09 10:55 | disposition other institution (70) | DRG 425 ==
LOC: JER 20:46 → JERBED 22:24 → J2W 12-06 08:57 → OBSVTOIN 12-07 14:26 → J7W 12-08 21:12
PROVIDERS: ADMIT Internal Medicine; ATTEND Family Medicine
DX: E87.1 Hypo-osmolality and hyponatremia (principal); I24.8 Other forms of acute ischemic heart disease; G20 Parkinson's disease; E66.9 Obesity, unspecified; F10.20 Alcohol dependence, uncomplicated; F12.20 Cannabis dependence, uncomplicated; F17.210 Nicotine dependence, cigarettes, uncomplicated; Z68.36 Body mass index [BMI] 36.0-36.9, adult; N40.0 Benign prostatic hyperplasia without lower urinary tract symptoms; I25.10 Atherosclerotic heart disease of native coronary artery without angina pectoris; E78.5 Hyperlipidemia, unspecified
CPT/HCPCS: 0241U-QW; 36415; 71045-TC-FY; 76700-TC; 78452-TC; 80053; 80307; 81003; 82248; 82550; 82570; 82728; 83540; 83550; 83735; 83880; 83930; 83935; 84300; 84484; 84540; 85025; 85027; 86704; 86709; 86803; 87340; 87517; 93005; 93010; 93017; 93306-TC; 94640; 97116-GP; 97161-GP; 99285-25; A9502; G0378; J2785

== ENCOUNTER 2022-12-09 12:08 | Inpatient (IN) | payer OTHER ==
[2022-12-09 13:14] VITALS: BMI 36.0
[2022-12-09] MEDS ORDERED: BISMUTH SUBSALICYLATE 524 MG/30 ML PO PRN (15:37)
[2022-12-09] MEDS ORDERED: POLYETHYLENE GLYCOL (HEALTHYLAX) 3350 17 GM PACKET PO PRN (15:37)
[2022-12-09] MEDS ORDERED: LOPERAMIDE HCL 2 MG CAPSULE PO PRN (15:37)
[2022-12-09] MEDS ORDERED: NALOXONE HCL 0.4 MG/ML VIAL IM PRN (15:37)
[2022-12-09] MEDS ORDERED: METHOCARBAMOL 500 MG TABLET PO PRN (15:37)
[2022-12-09] MEDS ORDERED: BENZONATATE 200 MG CAPSULE PO PRN (15:37)
[2022-12-09] MEDS ORDERED: IBUPROFEN 400 MG TABLET (FP) PO PRN (15:37)
[2022-12-09] MEDS ORDERED: ACETAMINOPHEN 325 MG TABLET (FP) PO PRN (15:37)
[2022-12-09] MEDS ORDERED: guaiFENesin 600 MG TABLET.ER (FP) PO PRN (15:37)
[2022-12-09] MEDS ORDERED: MAG HYDROX/AL HYDROX/SIMETH 30 ML UNIT-DOSE CUP PO PRN (15:37)
[2022-12-09] MEDS ORDERED: NALOXONE HCL (KLOXXADO) 8 MG SPRAY NS PRN (15:37)
[2022-12-09] MEDS ORDERED: DICYCLOMINE HCL 10 MG CAPSULE PO PRN (15:37)
[2022-12-09] MEDS ORDERED: ONDANSETRON *ODT* 4 MG TABLET SL PRN (15:37)
[2022-12-09] MEDS ORDERED: hydrOXYzine PAMOATE 25 MG CAPSULE (FP) PO PRN (15:37)
[2022-12-09] MEDS ORDERED: IBUPROFEN 600 MG TABLET (FP) PO PRN (15:37)
[2022-12-09] MEDS ORDERED: BENZOCAINE/MENTHOL (CHLORASEPTIC ) LOZENGE MM PRN (15:37)
[2022-12-09] MEDS ORDERED: NICOTINE 10 MG CARTRIDGE (INHALER) IH PRN (15:37)
[2022-12-09] MEDS ORDERED: MAGNESIUM HYDROX 2400MG/30ML ORAL SUSPENSION 30 ML CUP PO PRN (15:37)
[2022-12-09] MEDS: NICOTINE 14 MG/24 HOURS TOPICAL PATCH TD SCH (18:42)
[2022-12-09] MEDS: FERROUS SO4 325 MG TABLET (FP) PO SCH (18:42)
[2022-12-09] MEDS: PRENATAL VITAMINS W/ FOLIC ACID TABLET (FP) PO SCH (18:42)
[2022-12-09] MEDS ORDERED: THIAMINE HCL 100 MG TABLET (FP) PO SCH (22:00)
[2022-12-09] MEDS ORDERED: MELATONIN 5 MG TABLETS PO SCH (22:00)
[2022-12-09] MEDS ORDERED: SENNOSIDES 8.6MG TABLET (FP) PO SCH (22:00)
[2022-12-09] MEDS ORDERED: ATORVASTATIN CA 40 MG TABLET (FP) PO SCH (22:00)
[2022-12-09] MEDS: BUDESONIDE/FORMETEROL FUMARATE 160/4.5 mcg INHALER IH SCH (22:47)
[2022-12-10] MEDS ORDERED: TAMSULOSIN HCL 0.4 MG CAP PO SCH (10:00)
[2022-12-10] MEDS ORDERED: amLODIPine BESYLATE 10 MG TABLET (FP) PO SCH (10:00)
[2022-12-10] MEDS ORDERED: ASPIRIN COATED 81 MG TABLET.EC PO SCH (10:00)
[2022-12-10] MEDS ORDERED: HYDROCHLOROTHIAZIDE 25 MG TABLET (FP) PO SCH (10:00)
[2022-12-10] MEDS ORDERED: amLODIPine BESYLATE 5 MG TABLET (FP) PO SCH (10:00)
[2022-12-10] MEDS ORDERED: PANTOPRAZOLE 40 MG TABLET PO SCH (10:00)
[2022-12-10] MEDS ORDERED: LOSARTAN POTASSIUM 50 MG TABLET PO SCH (10:00)
[2022-12-10] MEDS ORDERED: FOLIC ACID 1 MG TABLET (FP) PO SCH (10:00)
[2022-12-10] MEDS: FERROUS SO4 325 MG TABLET (FP) PO SCH (10:41)
[2022-12-10] MEDS: PRENATAL VITAMINS W/ FOLIC ACID TABLET (FP) PO SCH (10:41)
[2022-12-10] MEDS: BUDESONIDE/FORMETEROL FUMARATE 160/4.5 mcg INHALER IH SCH (10:42)
[2022-12-10] MEDS: NICOTINE 14 MG/24 HOURS TOPICAL PATCH TD SCH (10:58)
[2022-12-10 13:08] VITALS: RESP 18
[2022-12-10 18:16] VITALS: BP 136/71; PULSE 70; TEMP 97.3
== END 2022-12-10 20:48 | disposition other institution (70) | DRG 775 ==
LOC: YASAS 12:08 → Y3N 15:39
PROVIDERS: ADMIT Allergy & Immunology; ATTEND Surgery
PROC: HZ2ZZZZ Detoxification Services for Substance Abuse Treatment (ICD-10-PCS; principal; 2022-12-09)
DX: F10.230 Alcohol dependence with withdrawal, uncomplicated (principal); F12.20 Cannabis dependence, uncomplicated; F17.210 Nicotine dependence, cigarettes, uncomplicated; F25.9 Schizoaffective disorder, unspecified; G20 Parkinson's disease; E78.5 Hyperlipidemia, unspecified; I10 Essential (primary) hypertension; I25.2 Old myocardial infarction; N40.0 Benign prostatic hyperplasia without lower urinary tract symptoms; Z62.810 Personal history of physical and sexual abuse in childhood
CPT/HCPCS: C9803-CS; U0003; U0005

== ENCOUNTER 2022-12-10 21:11 | Inpatient (IN) | payer OTHER ==
[2022-12-10] MEDS ORDERED: COLLOIDAL OATMEAL 1 BAR EACH TP PRN (22:56)
[2022-12-10] MEDS ORDERED: BENZONATATE 200 MG CAPSULE PO PRN (22:56)
[2022-12-10] MEDS ORDERED: guaiFENesin 600 MG TABLET.ER (FP) PO PRN (22:56)
[2022-12-10] MEDS ORDERED: AMMONIUM LACTATE 12% LOTION 225 GM BOTTLE TP PRN (22:56)
[2022-12-10] MEDS ORDERED: MAGNESIUM HYDROX 2400MG/30ML ORAL SUSPENSION 30 ML CUP PO PRN (22:56)
[2022-12-10] MEDS ORDERED: BENZOCAINE/MENTHOL (CHLORASEPTIC ) LOZENGE MM PRN (22:56)
[2022-12-10] MEDS ORDERED: LOPERAMIDE HCL 2 MG CAPSULE PO PRN (22:56)
[2022-12-10] MEDS ORDERED: MAG HYDROX/AL HYDROX/SIMETH 30 ML UNIT-DOSE CUP PO PRN (22:56)
[2022-12-10] MEDS ORDERED: hydrOXYzine PAMOATE 25 MG CAPSULE (FP) PO PRN (22:56)
[2022-12-10] MEDS ORDERED: NALOXONE HCL (KLOXXADO) 8 MG SPRAY NS PRN (22:56)
[2022-12-10] MEDS ORDERED: NALOXONE HCL 0.4 MG/ML VIAL IVPUSH PRN (22:56)
[2022-12-10] MEDS ORDERED: POLYETHYLENE GLYCOL (HEALTHYLAX) 3350 17 GM PACKET PO PRN (22:56)
[2022-12-10] MEDS ORDERED: NICOTINE POLACRILEX 2 MG GUM BUC PRN (22:56)
[2022-12-10] MEDS ORDERED: traZODone HCL 50 MG TABLET (FP) PO SCH (23:00)
[2022-12-10] MEDS: ATORVASTATIN CA 40 MG TABLET (FP) PO SCH (23:44)
[2022-12-10] MEDS: MELATONIN 5 MG TABLETS PO SCH (23:44)
[2022-12-10] MEDS: BUDESONIDE/FORMETEROL FUMARATE 160/4.5 mcg INHALER IH SCH (23:45)
[2022-12-11] MEDS: LOSARTAN POTASSIUM 50 MG TABLET PO SCH (09:45)
[2022-12-11] MEDS: amLODIPine BESYLATE 10 MG TABLET (FP) PO SCH (09:46)
[2022-12-11] MEDS: PANTOPRAZOLE 40 MG TABLET PO SCH (09:46)
[2022-12-11] MEDS: FERROUS SO4 325 MG TABLET (FP) PO SCH (09:46)
[2022-12-11] MEDS: HYDROCHLOROTHIAZIDE 25 MG TABLET (FP) PO SCH (09:46)
[2022-12-11] MEDS: ASPIRIN COATED 81 MG TABLET.EC PO SCH (09:46)
[2022-12-11] MEDS: BUDESONIDE/FORMETEROL FUMARATE 160/4.5 mcg INHALER IH SCH ×2 (09:47→21:27)
[2022-12-11] MEDS: NICOTINE 14 MG/24 HOURS TOPICAL PATCH TD SCH (09:47)
[2022-12-11] MEDS: MELATONIN 5 MG TABLETS PO SCH (21:26)
[2022-12-11] MEDS: ATORVASTATIN CA 40 MG TABLET (FP) PO SCH (21:26)
[2022-12-11] MEDS: THIAMINE HCL 100 MG TABLET (FP) PO SCH (21:26)
[2022-12-12] MEDS: LOSARTAN POTASSIUM 50 MG TABLET PO SCH (09:29)
[2022-12-12] MEDS: FERROUS SO4 325 MG TABLET (FP) PO SCH (09:30)
[2022-12-12] MEDS: amLODIPine BESYLATE 10 MG TABLET (FP) PO SCH (09:30)
[2022-12-12] MEDS: ASPIRIN COATED 81 MG TABLET.EC PO SCH (09:30)
[2022-12-12] MEDS: HYDROCHLOROTHIAZIDE 25 MG TABLET (FP) PO SCH (09:30)
[2022-12-12] MEDS: BUDESONIDE/FORMETEROL FUMARATE 160/4.5 mcg INHALER IH SCH ×2 (09:31→21:31)
[2022-12-12] MEDS: NICOTINE 14 MG/24 HOURS TOPICAL PATCH TD SCH (09:31)
[2022-12-12] MEDS: PANTOPRAZOLE 40 MG TABLET PO SCH (09:31)
[2022-12-12] MEDS: ACETAMINOPHEN 325 MG TABLET (FP) PO PRN (09:32)
[2022-12-12] MEDS: MELATONIN 5 MG TABLETS PO SCH (21:30)
[2022-12-12] MEDS: ATORVASTATIN CA 40 MG TABLET (FP) PO SCH (21:30)
[2022-12-12] MEDS: THIAMINE HCL 100 MG TABLET (FP) PO SCH (21:30)
[2022-12-13] MEDS: ACETAMINOPHEN 325 MG TABLET (FP) PO PRN (06:26)
[2022-12-13] MEDS ORDERED: METHYL SALICYLATE/MENTHOL OINT 30 GM TUBE TP PRN (08:40)
[2022-12-13] MEDS: amLODIPine BESYLATE 10 MG TABLET (FP) PO SCH (10:10)
[2022-12-13] MEDS: NICOTINE 14 MG/24 HOURS TOPICAL PATCH TD SCH (10:10)
[2022-12-13] MEDS: LOSARTAN POTASSIUM 50 MG TABLET PO SCH (10:11)
[2022-12-13] MEDS: FERROUS SO4 325 MG TABLET (FP) PO SCH (10:11)
[2022-12-13] MEDS: ASPIRIN COATED 81 MG TABLET.EC PO SCH (10:11)
[2022-12-13] MEDS: BUDESONIDE/FORMETEROL FUMARATE 160/4.5 mcg INHALER IH SCH ×2 (10:11→21:20)
[2022-12-13] MEDS: HYDROCHLOROTHIAZIDE 25 MG TABLET (FP) PO SCH (10:11)
[2022-12-13] MEDS: PANTOPRAZOLE 40 MG TABLET PO SCH (10:11)
[2022-12-13] MEDS: IBUPROFEN 600 MG TABLET (FP) PO PRN (13:34)
[2022-12-13] MEDS: THIAMINE HCL 100 MG TABLET (FP) PO SCH (21:20)
[2022-12-13] MEDS: MELATONIN 5 MG TABLETS PO SCH (21:20)
[2022-12-13] MEDS: ATORVASTATIN CA 40 MG TABLET (FP) PO SCH (21:20)
[2022-12-14] MEDS: IBUPROFEN 600 MG TABLET (FP) PO PRN (06:28)
[2022-12-14 06:41] VITALS: RESP 16; TEMP 97.3
[2022-12-14 09:11] VITALS: BP 118/75; PULSE 61
[2022-12-14] MEDS: PANTOPRAZOLE 40 MG TABLET PO SCH (09:32)
[2022-12-14] MEDS: FERROUS SO4 325 MG TABLET (FP) PO SCH (09:32)
[2022-12-14] MEDS: ASPIRIN COATED 81 MG TABLET.EC PO SCH (09:33)
[2022-12-14] MEDS: amLODIPine BESYLATE 10 MG TABLET (FP) PO SCH (09:33)
[2022-12-14] MEDS: LOSARTAN POTASSIUM 50 MG TABLET PO SCH (09:33)
[2022-12-14] MEDS: HYDROCHLOROTHIAZIDE 25 MG TABLET (FP) PO SCH (09:35)
[2022-12-14] MEDS: BUDESONIDE/FORMETEROL FUMARATE 160/4.5 mcg INHALER IH SCH (09:35)
[2022-12-14] MEDS: NICOTINE 14 MG/24 HOURS TOPICAL PATCH TD SCH (09:35)
[2022-12-14 12:06] LABS: BASO % 1.1 % (0-2.0); EOS % 8.3 % (0-4.5); HEMATOCRIT 36.9 % (35.4-49); HEMOGLOBIN 12.9 GM/dL (11.7-16.9); LYMPH % 29.7 % (8-40); MCH 38.4 pg (25.7-33.7); MCHC 34.9 g/dl (32.0-35.9); MONO % 15.2 % (3.8-10.2); NEUT % 45.7 % (42.8-82.8); PLATELET COUNT 119 10^3/uL (134-434); POTASSIUM 4.5 mmol/L (3.5-5.1); RBC 3.35 M/mm3 (4.00-5.60); RDW 15.2 % (11.9-15.9); WHITE BLOOD COUNT 5.2 K/mm3 (4.0-10.0)
[2022-12-14 12:08] LABS: CALCIUM 9.3 mg/dL (8.5-10.1)
[2022-12-14 12:09] LABS: ALBUMIN 3.4 g/dl (3.4-5.0); BLOOD UREA NITROGEN 24.4 mg/dL (7-18)
[2022-12-14 12:12] LABS: CREATININE 1.1 mg/dL (0.55-1.3)
[2022-12-14 12:13] LABS: TOT PROT 7.6 g/dl (6.4-8.2)
[2022-12-14 12:14] LABS: BILIRUBIN,TOTAL 0.7 mg/dL (0.2-1)
== END 2022-12-14 13:08 | disposition left against medical advice (07) | DRG 770 ==
LOC: YASAS 21:11 → Y3E 21:12
PROVIDERS: ADMIT Allergy & Immunology; ATTEND Psychiatry & Neurology Pain Medicine
PROC: HZ42ZZZ Group Counseling for Substance Abuse Treatment, Cognitive-Behavioral (ICD-10-PCS; principal; 2022-12-10)
DX: F10.20 Alcohol dependence, uncomplicated (principal); F12.20 Cannabis dependence, uncomplicated; F17.210 Nicotine dependence, cigarettes, uncomplicated; F25.9 Schizoaffective disorder, unspecified; F41.8 Other specified anxiety disorders; G20 Parkinson's disease; E78.00 Pure hypercholesterolemia, unspecified; I10 Essential (primary) hypertension; I25.2 Old myocardial infarction; J45.909 Unspecified asthma, uncomplicated; N40.0 Benign prostatic hyperplasia without lower urinary tract symptoms; R94.5 Abnormal results of liver function studies; E66.9 Obesity, unspecified; Z68.34 Body mass index [BMI] 34.0-34.9, adult; Z87.01 Personal history of pneumonia (recurrent); Z59.02 Unsheltered homelessness
CPT/HCPCS: 36415; 80053; 82140; 85025; 86803

== ENCOUNTER 2023-01-02 12:51 | Inpatient (IN) | payer OTHER ==
[2023-01-02 13:20] VITALS: BMI 35.4
[2023-01-02] MEDS ORDERED: FOLIC ACID INJECTION - 1 MG, THIAMINE HCL 100 MG, MULTIVIT INJECTION ADULT 10 ML in SOD... IVPB ONE ×2 (13:30→15:26)
[2023-01-02 14:18] LABS: BASO % 0.9 % (0-2.0); EOS % 7.5 % (0-4.5); HEMATOCRIT 37.3 % (35.4-49); HEMOGLOBIN 12.8 GM/dL (11.7-16.9); LYMPH % 21.4 % (8-40); MCH 36.8 pg (25.7-33.7); MCHC 34.3 g/dl (32.0-35.9); MEAN CELL VOLUME 107.2 fl (80-96); MEAN PLT VOLUME 9.5 fl (7.5-11.1); MONO % 9.6 % (3.8-10.2); NEUT % 60.6 % (42.8-82.8); PLATELET COUNT 138 10^3/uL (134-434); RBC 3.48 M/mm3 (4.00-5.60); RDW 14.1 % (11.9-15.9); WHITE BLOOD COUNT 5.6 K/mm3 (4.0-10.0)
[2023-01-02 14:33] LABS: POTASSIUM 3.6 mmol/L (3.5-5.1)
[2023-01-02 14:35] LABS: CALCIUM 8.7 mg/dL (8.5-10.1)
[2023-01-02 14:36] LABS: ALBUMIN 3.2 g/dl (3.4-5.0); BLOOD UREA NITROGEN 39.6 mg/dL (7-18); MAGNESIUM 1.8 mg/dL (1.8-2.4)
[2023-01-02 14:39] LABS: CREATININE 1.6 mg/dL (0.55-1.3)
[2023-01-02 14:40] LABS: BILIRUBIN,TOTAL 1.5 mg/dL (0.2-1); TOT PROT 7.3 g/dl (6.4-8.2)
[2023-01-02 14:43] LABS: N-TERMINAL BNP 175.7 pg/ml (5-125)
[2023-01-02 15:00] LABS: EPI CELLS 7 /uL (0-25.1); HYALINE CASTS 0 /uL (0-3.1); URINE APPEARANCE CLEAR; URINE BACTERIA 5 /uL (0-1359); URINE BILIRUBIN NEGATIVE (NEGATIVE); URINE COLOR YELLOW; URINE GLUCOSE (UA) NEGATIVE (NEGATIVE); URINE KETONE NEGATIVE (NEGATIVE); URINE LEUK ESTERASE TRACE (NEGATIVE); URINE NITRITE NEGATIVE (NEGATIVE); URINE PROTEIN NEGATIVE (NEGATIVE); URINE RBC 3 /uL (0-23.9); URINE WBC 20 /uL (0-25.8)
[2023-01-02] MEDS ORDERED: THIAMINE HCL 200 MG/2 ML VIAL ONE (17:44)
[2023-01-02] MEDS: THIAMINE HCL 200 MG/2 ML VIAL IM SCH (17:49)
[2023-01-02] MEDS ORDERED: ALBUTEROL SO4 2.5/IPRATROPIUM 0.5 INH SOL 3 ML VIAL.NEB. NEB PRN (20:00)
[2023-01-02] MEDS ORDERED: SENNOSIDES 8.6MG TABLET (FP) PO ONE (22:35)
[2023-01-02] MEDS ORDERED: HEPARIN NA (PORCINE) 5,000 UNITS/ML 1ML VIAL ONE (22:35)
[2023-01-02] MEDS ORDERED: ATORVASTATIN CA 40 MG TABLET (FP) ONE (22:35)
[2023-01-02] MEDS: SENNOSIDES 8.6MG TABLET (FP) PO SCH (22:43)
[2023-01-02] MEDS: ATORVASTATIN CA 40 MG TABLET (FP) PO SCH (22:43)
[2023-01-02] MEDS: HEPARIN NA (PORCINE) 5,000 UNITS/ML 1ML VIAL SQ SCH (22:43)
[2023-01-02] MEDS: BUDESONIDE/FORMETEROL FUMARATE 160/4.5 mcg INHALER IH SCH (22:44)
[2023-01-02] MEDS: SODIUM CHLORIDE 1,000 ML IV SCH (23:22)
[2023-01-03 06:21] LABS: BASO % 1.8 % (0-2.0); EOS % 12.8 % (0-4.5); HEMATOCRIT 37.3 % (35.4-49); HEMOGLOBIN 12.7 GM/dL (11.7-16.9); LYMPH % 23.9 % (8-40); MCH 36.9 pg (25.7-33.7); MCHC 34.1 g/dl (32.0-35.9); MEAN CELL VOLUME 108.1 fl (80-96); MEAN PLT VOLUME 10.1 fl (7.5-11.1); MONO % 11.7 % (3.8-10.2); NEUT % 49.8 % (42.8-82.8); PLATELET COUNT 125 10^3/uL (134-434); RBC 3.45 M/mm3 (4.00-5.60); RDW 14.4 % (11.9-15.9); WHITE BLOOD COUNT 5.6 K/mm3 (4.0-10.0)
[2023-01-03 06:55] LABS: BLOOD UREA NITROGEN 33.8 mg/dL (7-18); CALCIUM 8.6 mg/dL (8.5-10.1)
[2023-01-03 06:56] LABS: MAGNESIUM 1.7 mg/dL (1.8-2.4)
[2023-01-03 06:59] LABS: CREATININE 1.3 mg/dL (0.55-1.3); PHOSPHOROUS 3.4 mg/dL (2.5-4.9)
[2023-01-03] MEDS ORDERED: TAMSULOSIN HCL 0.4 MG CAP ONE (07:49)
[2023-01-03] MEDS ORDERED: CARBIDOPA/LEVODOPA 25/100 TABLET (FP) ONE ×3 (07:49→22:24)
[2023-01-03] MEDS: TAMSULOSIN HCL 0.4 MG CAP PO SCH (07:56)
[2023-01-03] MEDS ORDERED: PANTOPRAZOLE 40 MG TABLET PO ONE (08:08)
[2023-01-03] MEDS ORDERED: THIAMINE HCL 200 MG/2 ML VIAL ONE (08:08)
[2023-01-03] MEDS ORDERED: amLODIPine BESYLATE 5 MG TABLET (FP) ONE (08:09)
[2023-01-03] MEDS ORDERED: FOLIC ACID 1 MG TABLET (FP) ONE (08:09)
[2023-01-03] MEDS ORDERED: HEPARIN NA (PORCINE) 5,000 UNITS/ML 1ML VIAL ONE ×2 (08:09→22:24)
[2023-01-03] MEDS ORDERED: ASPIRIN COATED 81 MG TABLET.EC ONE (08:09)
[2023-01-03] MEDS ORDERED: valACYclovir HCL 500 MG TABLET (FP) ONE (08:09)
[2023-01-03] MEDS ORDERED: MULTIVITAMINS (DAILY MVI) TABLET (FP) ONE ×2 (08:09→09:32)
[2023-01-03] MEDS: amLODIPine BESYLATE 5 MG TABLET (FP) PO SCH (09:39)
[2023-01-03] MEDS: PANTOPRAZOLE 40 MG TABLET PO SCH (09:39)
[2023-01-03] MEDS: MULTIVITAMINS (DAILY MVI) TABLET (FP) PO SCH (09:39)
[2023-01-03] MEDS: HEPARIN NA (PORCINE) 5,000 UNITS/ML 1ML VIAL SQ SCH ×2 (09:39→22:33)
[2023-01-03] MEDS: FOLIC ACID 1 MG TABLET (FP) PO SCH (09:39)
[2023-01-03] MEDS: BUDESONIDE/FORMETEROL FUMARATE 160/4.5 mcg INHALER IH SCH (09:39)
[2023-01-03] MEDS: ASPIRIN COATED 81 MG TABLET.EC PO SCH (09:39)
[2023-01-03] MEDS: THIAMINE HCL 200 MG/2 ML VIAL IM SCH (09:40)
[2023-01-03] MEDS: valACYclovir HCL 500 MG TABLET (FP) PO SCH (09:40)
[2023-01-03] MEDS: LACTULOSE 20 GM/30 ML UDC (FOR ORAL USE ONLY) PO SCH (11:00)
[2023-01-03] MEDS ORDERED: LACTULOSE 20 GM/30 ML UDC (FOR ORAL USE ONLY) ONE (11:02)
[2023-01-03] MEDS: SODIUM CHLORIDE 1,000 ML IV SCH (17:01)
[2023-01-03] MEDS ORDERED: LORazepam 2 MG/ML SDV VIAL IVPUSH PRN (18:21)
[2023-01-03] MEDS ORDERED: chlordiazePOXIDE HCL 25 MG CAPSULE ONE (22:23)
[2023-01-03] MEDS ORDERED: SENNOSIDES 8.6MG TABLET (FP) PO ONE (22:24)
[2023-01-03] MEDS ORDERED: ATORVASTATIN CA 40 MG TABLET (FP) ONE (22:24)
[2023-01-03] MEDS: ATORVASTATIN CA 40 MG TABLET (FP) PO SCH (22:33)
[2023-01-03] MEDS: chlordiazePOXIDE HCL 25 MG CAPSULE PO SCH (22:34)
[2023-01-03] MEDS: SENNOSIDES 8.6MG TABLET (FP) PO SCH (22:34)
[2023-01-04] MEDS ORDERED: chlordiazePOXIDE HCL 25 MG CAPSULE ONE (05:45)
[2023-01-04] MEDS ORDERED: CARBIDOPA/LEVODOPA 25/100 TABLET (FP) ONE (05:45)
[2023-01-04] MEDS: chlordiazePOXIDE HCL 25 MG CAPSULE PO SCH ×2 (05:51→12:02)
[2023-01-04 06:09] LABS: INR 1.38 (0.83-1.09)
[2023-01-04] MEDS: BUDESONIDE/FORMETEROL FUMARATE 160/4.5 mcg INHALER IH SCH ×3 (07:30→23:27)
[2023-01-04] MEDS: LACTULOSE 20 GM/30 ML UDC (FOR ORAL USE ONLY) PO SCH (12:01)
[2023-01-04] MEDS: ASPIRIN COATED 81 MG TABLET.EC PO SCH (12:01)
[2023-01-04] MEDS: TAMSULOSIN HCL 0.4 MG CAP PO SCH (12:01)
[2023-01-04] MEDS: amLODIPine BESYLATE 5 MG TABLET (FP) PO SCH (12:02)
[2023-01-04] MEDS: FOLIC ACID 1 MG TABLET (FP) PO SCH (12:04)
[2023-01-04] MEDS: PANTOPRAZOLE 40 MG TABLET PO SCH (12:10)
[2023-01-04] MEDS: valACYclovir HCL 500 MG TABLET (FP) PO SCH (12:12)
[2023-01-04] MEDS: MULTIVITAMINS (DAILY MVI) TABLET (FP) PO SCH (12:13)
[2023-01-04] MEDS: HEPARIN NA (PORCINE) 5,000 UNITS/ML 1ML VIAL SQ SCH ×2 (12:15→23:24)
[2023-01-04] MEDS: THIAMINE HCL 200 MG/2 ML VIAL IM SCH (12:25)
[2023-01-04] MEDS: SODIUM CHLORIDE 1,000 ML IV SCH (15:27)
[2023-01-04] MEDS ORDERED: MAG HYDROX/AL HYDROX/SIMETH 30 ML UNIT-DOSE CUP PO PRN (16:08)
[2023-01-04] MEDS ORDERED: IBUPROFEN 400 MG TABLET (FP) PO PRN (16:08)
[2023-01-04] MEDS ORDERED: BENZONATATE 200 MG CAPSULE PO PRN (16:08)
[2023-01-04] MEDS ORDERED: COLLOIDAL OATMEAL 1 BAR EACH TP PRN (16:08)
[2023-01-04] MEDS ORDERED: LOPERAMIDE HCL 2 MG CAPSULE PO PRN (16:08)
[2023-01-04] MEDS ORDERED: MAGNESIUM HYDROX 2400MG/30ML ORAL SUSPENSION 30 ML CUP PO PRN (16:08)
[2023-01-04] MEDS ORDERED: POLYETHYLENE GLYCOL (HEALTHYLAX) 3350 17 GM PACKET PO PRN (16:08)
[2023-01-04] MEDS ORDERED: guaiFENesin 600 MG TABLET.ER (FP) PO PRN (16:08)
[2023-01-04] MEDS ORDERED: hydrOXYzine PAMOATE 25 MG CAPSULE (FP) PO PRN (16:08)
[2023-01-04] MEDS ORDERED: DICYCLOMINE HCL 10 MG CAPSULE PO PRN (16:08)
[2023-01-04] MEDS ORDERED: IBUPROFEN 600 MG TABLET (FP) PO PRN (16:08)
[2023-01-04] MEDS ORDERED: BENZOCAINE/MENTHOL (CHLORASEPTIC ) LOZENGE MM PRN (16:08)
[2023-01-04] MEDS ORDERED: BISMUTH SUBSALICYLATE 524 MG/30 ML PO PRN (16:08)
[2023-01-04] MEDS ORDERED: NICOTINE 10 MG CARTRIDGE (INHALER) IH PRN (16:08)
[2023-01-04] MEDS ORDERED: ONDANSETRON *ODT* 4 MG TABLET SL PRN (16:08)
[2023-01-04] MEDS ORDERED: AMMONIUM LACTATE 12% LOTION 225 GM BOTTLE TP PRN (16:08)
[2023-01-04] MEDS: LORazepam 1 MG TABLET PO SCH ×2 (18:06→23:25)
[2023-01-04] MEDS: ACETAMINOPHEN 325 MG TABLET (FP) PO PRN (18:08)
[2023-01-04] MEDS ORDERED: THIAMINE HCL 100 MG TABLET (FP) PO SCH (22:00)
[2023-01-04] MEDS: MELATONIN 5 MG TABLETS PO SCH (23:24)
[2023-01-04] MEDS: SENNOSIDES 8.6MG TABLET (FP) PO SCH (23:24)
[2023-01-04] MEDS: ATORVASTATIN CA 40 MG TABLET (FP) PO SCH (23:25)
[2023-01-05] MEDS: SODIUM CHLORIDE 1,000 ML IV SCH ×2 (05:59→14:16)
[2023-01-05] MEDS: LORazepam 1 MG TABLET PO SCH ×4 (06:00→23:13)
[2023-01-05] MEDS: ACETAMINOPHEN 325 MG TABLET (FP) PO PRN (06:48)
[2023-01-05 08:00] LABS: POTASSIUM 4.2 mmol/L (3.5-5.1)
[2023-01-05 08:04] LABS: ALBUMIN 3.1 g/dl (3.4-5.0); BLOOD UREA NITROGEN 13.4 mg/dL (7-18); CALCIUM 8.9 mg/dL (8.5-10.1)
[2023-01-05 08:07] LABS: CREATININE 1.1 mg/dL (0.55-1.3)
[2023-01-05 08:09] LABS: BILIRUBIN,TOTAL 1.6 mg/dL (0.2-1)
[2023-01-05] MEDS: TAMSULOSIN HCL 0.4 MG CAP PO SCH (09:40)
[2023-01-05] MEDS ORDERED: PRENATAL VITAMINS W/ FOLIC ACID TABLET (FP) PO SCH (10:00)
[2023-01-05] MEDS: FOLIC ACID 1 MG TABLET (FP) PO SCH (10:13)
[2023-01-05] MEDS: ASPIRIN COATED 81 MG TABLET.EC PO SCH (10:13)
[2023-01-05] MEDS: THIAMINE HCL 200 MG/2 ML VIAL IM SCH (10:13)
[2023-01-05] MEDS: MULTIVITAMINS (DAILY MVI) TABLET (FP) PO SCH (10:13)
[2023-01-05] MEDS: amLODIPine BESYLATE 5 MG TABLET (FP) PO SCH (10:13)
[2023-01-05] MEDS: valACYclovir HCL 500 MG TABLET (FP) PO SCH (10:13)
[2023-01-05] MEDS: PANTOPRAZOLE 40 MG TABLET PO SCH (10:13)
[2023-01-05] MEDS: LACTULOSE 20 GM/30 ML UDC (FOR ORAL USE ONLY) PO SCH (10:14)
[2023-01-05] MEDS: HEPARIN NA (PORCINE) 5,000 UNITS/ML 1ML VIAL SQ SCH ×2 (10:14→23:14)
[2023-01-05] MEDS: BUDESONIDE/FORMETEROL FUMARATE 160/4.5 mcg INHALER IH SCH ×2 (10:15→23:15)
[2023-01-05] MEDS: ATORVASTATIN CA 40 MG TABLET (FP) PO SCH (23:12)
[2023-01-05] MEDS: SENNOSIDES 8.6MG TABLET (FP) PO SCH (23:12)
[2023-01-05] MEDS: MELATONIN 5 MG TABLETS PO SCH (23:14)
[2023-01-06] MEDS: LORazepam 1 MG TABLET PO SCH ×4 (06:09→22:40)
[2023-01-06] MEDS: LACTULOSE 20 GM/30 ML UDC (FOR ORAL USE ONLY) PO SCH (11:01)
[2023-01-06] MEDS: TAMSULOSIN HCL 0.4 MG CAP PO SCH (11:01)
[2023-01-06] MEDS: MULTIVITAMINS (DAILY MVI) TABLET (FP) PO SCH (11:02)
[2023-01-06] MEDS: PANTOPRAZOLE 40 MG TABLET PO SCH (11:02)
[2023-01-06] MEDS: amLODIPine BESYLATE 5 MG TABLET (FP) PO SCH (11:02)
[2023-01-06] MEDS: ASPIRIN COATED 81 MG TABLET.EC PO SCH (11:02)
[2023-01-06] MEDS: HEPARIN NA (PORCINE) 5,000 UNITS/ML 1ML VIAL SQ SCH ×2 (11:03→21:42)
[2023-01-06] MEDS: valACYclovir HCL 500 MG TABLET (FP) PO SCH (11:03)
[2023-01-06] MEDS: THIAMINE HCL 200 MG/2 ML VIAL IM SCH (11:03)
[2023-01-06] MEDS: FOLIC ACID 1 MG TABLET (FP) PO SCH (11:03)
[2023-01-06] MEDS: BUDESONIDE/FORMETEROL FUMARATE 160/4.5 mcg INHALER IH SCH ×2 (11:04→21:43)
[2023-01-06] MEDS: ACETAMINOPHEN 325 MG TABLET (FP) PO PRN (13:02)
[2023-01-06] MEDS: SODIUM CHLORIDE 1,000 ML IV SCH (14:58)
[2023-01-06] MEDS: SENNOSIDES 8.6MG TABLET (FP) PO SCH (21:42)
[2023-01-06] MEDS: MELATONIN 5 MG TABLETS PO SCH (21:42)
[2023-01-06] MEDS: ATORVASTATIN CA 40 MG TABLET (FP) PO SCH (21:42)
[2023-01-07 05:46] VITALS: TEMP 97.7
[2023-01-07] MEDS: LORazepam 0.5 MG TABLET PO SCH ×2 (06:36→11:15)
[2023-01-07] MEDS: TAMSULOSIN HCL 0.4 MG CAP PO SCH (08:50)
[2023-01-07] MEDS: ACETAMINOPHEN 325 MG TABLET (FP) PO PRN (08:52)
[2023-01-07 09:09] VITALS: BP 168/84; PULSE 69; RESP 18
[2023-01-07 09:16] LABS: POTASSIUM 4.8 mmol/L (3.5-5.1)
[2023-01-07 09:19] LABS: ALBUMIN 3.2 g/dl (3.4-5.0); BLOOD UREA NITROGEN 13.7 mg/dL (7-18); MAGNESIUM 1.3 mg/dL (1.8-2.4)
[2023-01-07 09:22] LABS: CREATININE 0.9 mg/dL (0.55-1.3)
[2023-01-07 09:23] LABS: BILIRUBIN,TOTAL 0.9 mg/dL (0.2-1)
[2023-01-07 09:24] LABS: TOT PROT 6.9 g/dl (6.4-8.2)
[2023-01-07] MEDS: FOLIC ACID 1 MG TABLET (FP) PO SCH (09:25)
[2023-01-07] MEDS: LACTULOSE 20 GM/30 ML UDC (FOR ORAL USE ONLY) PO SCH (09:25)
[2023-01-07] MEDS: HEPARIN NA (PORCINE) 5,000 UNITS/ML 1ML VIAL SQ SCH (09:26)
[2023-01-07] MEDS: PANTOPRAZOLE 40 MG TABLET PO SCH (09:26)
[2023-01-07] MEDS: amLODIPine BESYLATE 5 MG TABLET (FP) PO SCH (09:26)
[2023-01-07] MEDS: valACYclovir HCL 500 MG TABLET (FP) PO SCH (09:26)
[2023-01-07] MEDS: THIAMINE HCL 200 MG/2 ML VIAL IM SCH (09:26)
[2023-01-07] MEDS: BUDESONIDE/FORMETEROL FUMARATE 160/4.5 mcg INHALER IH SCH (09:27)
[2023-01-07] MEDS: MULTIVITAMINS (DAILY MVI) TABLET (FP) PO SCH (09:27)
[2023-01-07] MEDS: ASPIRIN COATED 81 MG TABLET.EC PO SCH (09:27)
[2023-01-07] MEDS ORDERED: MAGNESIUM SULF 50% (8.12 MEQ/2 ML-1 GM VIAL) IVPB ONE (14:09)
[2023-01-07] MEDS ORDERED: MAGNESIUM OXIDE 400 MG TABLET (FP) PO SCH (22:00)
[2023-01-08] MEDS ORDERED: LORazepam 0.5 MG TABLET PO ONE (05:00)
== END 2023-01-07 13:45 | disposition home or self-care (01) | DRG 775 ==
LOC: JER 12:51 → JERBED 14:53 → J7W 01-04 09:56
PROVIDERS: ADMIT Family Medicine; ATTEND Family Medicine
PROC: HZ2ZZZZ Detoxification Services for Substance Abuse Treatment (ICD-10-PCS; principal; 2023-01-04)
DX: F10.239 Alcohol dependence with withdrawal, unspecified (principal); E87.1 Hypo-osmolality and hyponatremia; I25.10 Atherosclerotic heart disease of native coronary artery without angina pectoris; I25.2 Old myocardial infarction; N40.0 Benign prostatic hyperplasia without lower urinary tract symptoms; I10 Essential (primary) hypertension; E78.5 Hyperlipidemia, unspecified; F25.9 Schizoaffective disorder, unspecified; M06.9 Rheumatoid arthritis, unspecified; R79.89 Other specified abnormal findings of blood chemistry; W18.30XA Fall on same level, unspecified, initial encounter; Y92.238 Other place in hospital as the place of occurrence of the external cause; G20 Parkinson's disease; F17.210 Nicotine dependence, cigarettes, uncomplicated; J45.909 Unspecified asthma, uncomplicated; K82.8 Other specified diseases of gallbladder; E11.9 Type 2 diabetes mellitus without complications
CPT/HCPCS: 36415; 70450-TC; 71045-TC-FY; 72125-TC; 72170-TC-FY; 73521-TC-FY; 74183-TC; 80048; 80053; 80061; 81003; 82570; 83036; 83735; 83880; 83930; 83935; 84100; 84300; 84443; 84484; 85025; 85610; 87086; 93005; 93010; 97116-GP; 97161-GP; 99285-25; C1887; J1644

== ENCOUNTER 2023-10-29 12:26 | Inpatient (IN) | payer OTHER ==
[2023-10-29 13:13] VITALS: BMI 39.5
[2023-10-29] MEDS ORDERED: BENZOCAINE/MENTHOL (CHLORASEPTIC ) LOZENGE MM PRN (13:57)
[2023-10-29] MEDS ORDERED: NICOTINE POLACRILEX 4 MG LOZENGE BC PRN (13:57)
[2023-10-29] MEDS ORDERED: MAG HYDROX/AL HYDROX/SIMETH 30 ML UNIT-DOSE CUP PO PRN (13:57)
[2023-10-29] MEDS ORDERED: NALOXONE HCL 0.4 MG/ML VIAL IM PRN (13:57)
[2023-10-29] MEDS ORDERED: NALOXONE HCL (KLOXXADO) 8 MG SPRAY NS PRN (13:57)
[2023-10-29] MEDS ORDERED: BENZONATATE 200 MG CAPSULE PO PRN (13:57)
[2023-10-29] MEDS ORDERED: NICOTINE POLACRILEX 4 MG GUM BUC PRN (13:57)
[2023-10-29] MEDS ORDERED: guaiFENesin 600 MG TABLET.ER (FP) PO PRN (13:57)
[2023-10-29] MEDS ORDERED: LOPERAMIDE HCL 2 MG CAPSULE PO PRN (13:57)
[2023-10-29] MEDS ORDERED: ALBUTEROL SO4 HFA INHALER IH PRN (14:00)
[2023-10-29] MEDS: FUROSEMIDE 40 MG TABLET (FP) PO SCH (15:29)
[2023-10-29] MEDS ORDERED: TUBERCULIN PPD 5 TU/0.1ML VIAL ID ONE (16:22)
[2023-10-29] MEDS: ACETAMINOPHEN 325 MG TABLET (FP) PO PRN (16:26)
[2023-10-29] MEDS: TUBERCULIN PPD 5 TU/0.1ML SYRINGE (IN PATIENT USE ONLY) ID ONE (16:58)
[2023-10-29] MEDS: MELATONIN 5 MG TABLETS PO SCH (23:00)
[2023-10-29] MEDS: hydrALAZINE HCL 25 MG TABLET (FP) PO SCH (23:00)
[2023-10-29] MEDS: THIAMINE 100 MG TABLET PO SCH (23:00)
[2023-10-30] MEDS: TAMSULOSIN HCL 0.4 MG CAP PO SCH (09:49)
[2023-10-30] MEDS: LOSARTAN POTASSIUM 50 MG TABLET PO SCH (09:50)
[2023-10-30] MEDS: PRENATAL VITAMINS W/ FOLIC ACID TABLET (FP) PO SCH (09:50)
[2023-10-30] MEDS: ASPIRIN COATED 81 MG TABLET.EC PO SCH (09:50)
[2023-10-30] MEDS: PANTOPRAZOLE 40 MG TABLET PO SCH (09:52)
[2023-10-30 11:11] LABS: HEMATOCRIT 39.5 % (35.4-49); HEMOGLOBIN 12.9 GM/dL (11.7-16.9); MCH 33.8 pg (25.7-33.7); MCHC 32.7 g/dl (32.0-35.9); MEAN CELL VOLUME 103.3 fl (80-96); MEAN PLT VOLUME 9.5 fl (7.5-11.1); PLATELET COUNT 97 10^3/uL (134-434); RBC 3.82 M/mm3 (4.00-5.60); RDW 13.1 % (11.9-15.9); WHITE BLOOD COUNT 4.7 K/mm3 (4.0-10.0)
[2023-10-30 11:17] LABS: CHLORIDE 100 mmol/L (98-107); POTASSIUM 4.4 mmol/L (3.5-5.1); SODIUM 136 mmol/L (136-145)
[2023-10-30 11:20] LABS: ALBUMIN 3.2 g/dl (3.4-5.0); ANION GAP 6 mmol/L (4-13); BLOOD UREA NITROGEN 19.8 mg/dL (7-18); CALCIUM 8.8 mg/dL (8.5-10.1); CO2 30 mmol/L (21-32); GLUCOSE,RANDOM 149 mg/dL (74-106)
[2023-10-30 11:23] LABS: CREATININE 1.3 mg/dL (0.55-1.3); SGOT/AST 33 U/L (15-37); SGPT/ALT 18 U/L (13-61)
[2023-10-30 11:25] LABS: BILIRUBIN,TOTAL 0.7 mg/dL (0.2-1); TOT PROT 6.6 g/dl (6.4-8.2)
[2023-10-30 11:26] LABS: ALK PHOS 83 U/L (45-117)
[2023-10-30 11:50] LABS: SYPHILIS W/ RPR CONF NON-REACTIVE (NONREACTIVE)
[2023-10-30 12:24] LABS: HIV INTERPRETATION NEGATIVE (NEGATIVE)
[2023-10-31] MEDS: hydrALAZINE HCL 50 MG TABLET (FP) PO SCH (10:15)
[2023-10-31] MEDS ORDERED: AMMONIUM LACTATE 12% LOTION 225 GM BOTTLE TP PRN (14:53)
[2023-10-31] MEDS: hydrOXYzine PAMOATE 25 MG CAPSULE (FP) PO PRN (16:34)
[2023-11-01] MEDS: MAGNESIUM HYDROX 2400MG/30ML ORAL SUSPENSION 30 ML CUP PO PRN (11:22)
[2023-11-01 14:43] LABS: INR 1.1 (0.83-1.09); PROTHROMBIN TIME (PATIENT) 12.7 SEC (9.7-13.0)
[2023-11-02] MEDS: LACTULOSE 20 GM/30 ML UDC (FOR ORAL USE ONLY) PO SCH (09:59)
[2023-11-02 12:27] LABS: URINE APPEARANCE CLEAR; URINE BILIRUBIN NEGATIVE (NEGATIVE); URINE COLOR YELLOW; URINE GLUCOSE (UA) NEGATIVE (NEGATIVE); URINE KETONE NEGATIVE (NEGATIVE)
[2023-11-02 12:28] LABS: EPI CELLS 8.3 /uL (0-25.1); HYALINE CASTS 0.14 /uL (0-3.1); PH,URINE 7.5 (5.0-8.0); URINE BACTERIA 9.6 /uL (0-1359); URINE LEUK ESTERASE TRACE (NEGATIVE); URINE NITRITE NEGATIVE (NEGATIVE); URINE PROTEIN NEGATIVE (NEGATIVE); URINE RBC 3.9 /uL (0-23.9); URINE UROBILINOGEN 0.2 mg/dL (0.2-1.0); URINE WBC 20.3 /uL (0-25.8)
[2023-11-04] MEDS: ACETAMINOPHEN 325 MG TABLET (FP) PO ONE (21:54)
[2023-11-05] MEDS: ERGOCALCIFEROL (VIT D2) 50,000 UNIT (1.25 MG) CAPSULE PO SCH (10:43)
[2023-11-07] MEDS: POLYETHYLENE GLYCOL (HEALTHYLAX) 3350 17 GM PACKET PO PRN (06:08)
[2023-11-07] MEDS: cloNIDine HCL 0.1 MG TABLET PO SCH (14:08)
[2023-11-07] MEDS: NALTREXONE HCL 50 MG TABLET PO ONE (14:08)
[2023-11-09] MEDS: NALTREXONE HCL 50 MG TABLET PO ONE (10:34)
[2023-11-10] MEDS: NALTREXONE HCL 50 MG TABLET PO SCH (10:21)
[2023-11-11] MEDS ORDERED: NALTREXONE MICROSPHERES (VIVITROL) 380 MG DISP.SYRIN IM ONE (06:00)
[2023-11-11 06:26] VITALS: RESP 18; TEMP 97.1
[2023-11-11] MEDS: NALTREXONE HCL 50 MG TABLET PO SCH (06:27)
[2023-11-11 09:29] VITALS: BP 147/86; PULSE 91
[2023-11-11] MEDS ORDERED: ACETAMINOPHEN 325 MG TABLET (FP) PO PRN (09:34)
== END 2023-11-11 09:44 | disposition home or self-care (01) | DRG 772 ==
LOC: YASAS 12:26 → Y3W 14:29
PROVIDERS: ADMIT Allergy & Immunology; ATTEND Psychiatry & Neurology Pain Medicine
PROC: HZ42ZZZ Group Counseling for Substance Abuse Treatment, Cognitive-Behavioral (ICD-10-PCS; principal; 2023-10-29)
DX: F10.20 Alcohol dependence, uncomplicated (principal); F12.20 Cannabis dependence, uncomplicated; F17.210 Nicotine dependence, cigarettes, uncomplicated; F25.9 Schizoaffective disorder, unspecified; F31.9 Bipolar disorder, unspecified; E72.20 Disorder of urea cycle metabolism, unspecified; I25.10 Atherosclerotic heart disease of native coronary artery without angina pectoris; I11.0 Hypertensive heart disease with heart failure; I50.9 Heart failure, unspecified; I25.2 Old myocardial infarction; G20.B1 Parkinson's disease with dyskinesia, without mention of fluctuations; M17.12 Unilateral primary osteoarthritis, left knee; N40.0 Benign prostatic hyperplasia without lower urinary tract symptoms
CPT/HCPCS: 36415; 80053; 80307; 81003; 82140; 82652; 83735; 85027; 85610; 86780; 86803; 87389; 87811; 93005; 93010

== ENCOUNTER 2024-01-10 11:46 | Inpatient (IN) | payer OTHER ==
[2024-01-10 12:07] VITALS: BMI 36.9
[2024-01-10 13:14] LABS: BASO % 1.1 % (0-2.0); EOS % 5.3 % (0-4.5); HEMATOCRIT 35.6 % (35.4-49); HEMOGLOBIN 11.8 GM/dL (11.7-16.9); LYMPH % 24.6 % (8-40); MCH 33.5 pg (25.7-33.7); MEAN CELL VOLUME 101.6 fl (80-96); MEAN PLT VOLUME 9.2 fl (7.5-11.1); MONO % 11.8 % (3.8-10.2); NEUT % 57.2 % (42.8-82.8); PLATELET COUNT 138 10^3/uL (134-434); RBC 3.51 M/mm3 (4.00-5.60); RDW 13.8 % (11.9-15.9); WHITE BLOOD COUNT 6.2 K/mm3 (4.0-10.0)
[2024-01-10 13:32] LABS: POTASSIUM 3.7 mmol/L (3.5-5.1)
[2024-01-10 13:33] LABS: CALCIUM 9.4 mg/dL (8.5-10.1)
[2024-01-10 13:34] LABS: ALBUMIN 3.8 g/dl (3.4-5.0); MAGNESIUM 1.8 mg/dL (1.8-2.4)
[2024-01-10 13:37] LABS: CREATININE 1.2 mg/dL (0.55-1.3)
[2024-01-10 13:38] LABS: BILIRUBIN,TOTAL 0.7 mg/dL (0.2-1)
[2024-01-10 13:39] LABS: TOT PROT 7.6 g/dl (6.4-8.2)
[2024-01-10 13:42] LABS: N-TERMINAL BNP 327.6 pg/ml (5-125)
[2024-01-10] MEDS ORDERED: ASPIRIN COATED 81 MG TABLET.EC ONE (17:02)
[2024-01-10] MEDS ORDERED: FUROSEMIDE 40 MG/4 ML INJECTABLE VIAL ONE (17:02)
[2024-01-10] MEDS: ASPIRIN COATED 81 MG TABLET.EC PO SCH (17:13)
[2024-01-10] MEDS: FUROSEMIDE 40 MG/4 ML INJECTABLE VIAL IVPUSH SCH (17:13)
[2024-01-10] MEDS ORDERED: TAMSULOSIN HCL 0.4 MG CAP ONE (22:51)
[2024-01-10] MEDS ORDERED: hydrALAZINE HCL 50 MG TABLET (FP) ONE (22:51)
[2024-01-10] MEDS ORDERED: CARBIDOPA/LEVODOPA 25/100 TABLET (FP) ONE (22:51)
[2024-01-10] MEDS ORDERED: cloNIDine HCL 0.1 MG TABLET ONE (22:51)
[2024-01-10] MEDS: TAMSULOSIN HCL 0.4 MG CAP PO SCH (22:57)
[2024-01-10] MEDS: cloNIDine HCL 0.1 MG TABLET PO SCH (22:57)
[2024-01-10] MEDS: hydrALAZINE HCL 50 MG TABLET (FP) PO SCH (22:57)
[2024-01-10] MEDS: CARBIDOPA/LEVODOPA 25/100 TABLET (FP) PO SCH (22:57)
[2024-01-11] MEDS ORDERED: CARBIDOPA/LEVODOPA 25/100 TABLET (FP) ONE (06:11)
[2024-01-11 07:08] LABS: BASO % 0.8 % (0-2.0); EOS % 7.7 % (0-4.5); HEMATOCRIT 37.4 % (35.4-49); HEMOGLOBIN 12.3 GM/dL (11.7-16.9); MCH 33.4 pg (25.7-33.7); MCHC 32.9 g/dl (32.0-35.9); MEAN CELL VOLUME 101.4 fl (80-96); MEAN PLT VOLUME 9.5 fl (7.5-11.1); MONO % 9.2 % (3.8-10.2); NEUT % 63.3 % (42.8-82.8); PLATELET COUNT 129 10^3/uL (134-434); RBC 3.69 M/mm3 (4.00-5.60); RDW 13.7 % (11.9-15.9); WHITE BLOOD COUNT 6.3 K/mm3 (4.0-10.0)
[2024-01-11 07:23] LABS: POTASSIUM 4.2 mmol/L (3.5-5.1)
[2024-01-11 07:24] LABS: CALCIUM 8.9 mg/dL (8.5-10.1)
[2024-01-11 07:25] LABS: ALBUMIN 3.3 g/dl (3.4-5.0); MAGNESIUM 1.6 mg/dL (1.8-2.4)
[2024-01-11 07:28] LABS: CREATININE 1.1 mg/dL (0.55-1.3); PHOSPHOROUS 3.4 mg/dL (2.5-4.9)
[2024-01-11 07:29] LABS: TOT PROT 6.8 g/dl (6.4-8.2)
[2024-01-11 07:30] LABS: BILIRUBIN,TOTAL 0.7 mg/dL (0.2-1)
[2024-01-11] MEDS: LOSARTAN POTASSIUM 50 MG TABLET PO SCH (10:36)
[2024-01-11] MEDS: PANTOPRAZOLE 40 MG TABLET PO SCH (10:37)
[2024-01-11] MEDS: POTASSIUM CHLORIDE TABS 10 MEQ TABLET.ER (FP) PO SCH (10:37)
[2024-01-11] MEDS: ENOXAPARIN NA (PORCINE) 40 MG/0.4 ML DISP.SYRIN SQ SCH (10:37)
[2024-01-11] MEDS ORDERED: MAGNESIUM SULFATE IN WATER 2 GM/50 ML IVPB IVPB ONE (10:38)
[2024-01-11] MEDS: MAGNESIUM 2GM/50ML STERILE WATER IVPB IVPB ONE ×2 (10:38→11:06)
[2024-01-11] MEDS ORDERED: ACETAMINOPHEN 325 MG TABLET (FP) PO PRN (10:42)
[2024-01-11] MEDS ORDERED: FUROSEMIDE 40 MG/4 ML INJECTABLE VIAL ONE (18:01)
[2024-01-11] MEDS: FUROSEMIDE 40 MG/4 ML INJECTABLE VIAL IVPUSH SCH (18:02)
[2024-01-12 07:29] LABS: HEMATOCRIT 36.9 % (35.4-49); HEMOGLOBIN 12.5 GM/dL (11.7-16.9); MCH 33.7 pg (25.7-33.7); MCHC 33.9 g/dl (32.0-35.9); MEAN CELL VOLUME 99.2 fl (80-96); PLATELET COUNT 131 10^3/uL (134-434); RBC 3.72 M/mm3 (4.00-5.60); RDW 13.3 % (11.9-15.9); WHITE BLOOD COUNT 6.7 K/mm3 (4.0-10.0)
[2024-01-12 07:48] LABS: POTASSIUM 3.9 mmol/L (3.5-5.1)
[2024-01-12 07:51] LABS: CALCIUM 9.1 mg/dL (8.5-10.1)
[2024-01-12 07:52] LABS: ALBUMIN 3.6 g/dl (3.4-5.0); BLOOD UREA NITROGEN 14.2 mg/dL (7-18); MAGNESIUM 1.8 mg/dL (1.8-2.4)
[2024-01-12 07:54] LABS: CREATININE 1.1 mg/dL (0.55-1.3); PHOSPHOROUS 3.5 mg/dL (2.5-4.9)
[2024-01-12 07:56] LABS: BILIRUBIN,TOTAL 0.8 mg/dL (0.2-1); TOT PROT 7.1 g/dl (6.4-8.2)
[2024-01-12] MEDS: FUROSEMIDE 40 MG/4 ML INJECTABLE VIAL IVPUSH SCH (15:01)
[2024-01-13 07:58] LABS: HEMOGLOBIN 12.8 GM/dL (11.7-16.9); MCH 34.4 pg (25.7-33.7); MCHC 34.7 g/dl (32.0-35.9); MEAN CELL VOLUME 99.1 fl (80-96); MEAN PLT VOLUME 10.2 fl (7.5-11.1); PLATELET COUNT 134 10^3/uL (134-434); RBC 3.73 M/mm3 (4.00-5.60); RDW 13.6 % (11.9-15.9); WHITE BLOOD COUNT 6.3 K/mm3 (4.0-10.0)
[2024-01-13 08:11] LABS: POTASSIUM 3.8 mmol/L (3.5-5.1)
[2024-01-13 08:12] LABS: CALCIUM 9.1 mg/dL (8.5-10.1)
[2024-01-13 08:13] LABS: ALBUMIN 3.6 g/dl (3.4-5.0); BLOOD UREA NITROGEN 15.4 mg/dL (7-18); MAGNESIUM 1.6 mg/dL (1.8-2.4)
[2024-01-13 08:16] LABS: CREATININE 1.2 mg/dL (0.55-1.3); PHOSPHOROUS 3.7 mg/dL (2.5-4.9)
[2024-01-13 08:17] LABS: BILIRUBIN,TOTAL 0.8 mg/dL (0.2-1); TOT PROT 7.3 g/dl (6.4-8.2)
[2024-01-13] MEDS: MAGNESIUM 2GM/50ML STERILE WATER IVPB IVPB ONE (09:29)
[2024-01-13] MEDS: POTASSIUM CHLORIDE TABS 20 MEQ TABLET.ER (FP) PO SCH (09:30)
[2024-01-13] MEDS: ACETAMINOPHEN 325 MG TABLET (FP) PO PRN (09:34)
[2024-01-14 07:48] LABS: HEMATOCRIT 39.7 % (35.4-49); HEMOGLOBIN 13.5 GM/dL (11.7-16.9); MCH 34.2 pg (25.7-33.7); MEAN CELL VOLUME 100.5 fl (80-96); MEAN PLT VOLUME 10.1 fl (7.5-11.1); PLATELET COUNT 146 10^3/uL (134-434); RBC 3.95 M/mm3 (4.00-5.60); WHITE BLOOD COUNT 8.3 K/mm3 (4.0-10.0)
[2024-01-14 08:02] LABS: POTASSIUM 4.1 mmol/L (3.5-5.1)
[2024-01-14 08:05] LABS: ALBUMIN 3.8 g/dl (3.4-5.0); BLOOD UREA NITROGEN 25.8 mg/dL (7-18); MAGNESIUM 1.6 mg/dL (1.8-2.4)
[2024-01-14 08:08] LABS: CREATININE 1.4 mg/dL (0.55-1.3); PHOSPHOROUS 3.9 mg/dL (2.5-4.9)
[2024-01-14 08:09] LABS: BILIRUBIN,TOTAL 0.6 mg/dL (0.2-1); TOT PROT 7.8 g/dl (6.4-8.2)
[2024-01-14] MEDS: MAGNESIUM 2GM/50ML STERILE WATER IVPB IVPB SCH (11:08)
[2024-01-15 07:31] LABS: BASO % 0.6 % (0-2.0); EOS % 10.1 % (0-4.5); HEMATOCRIT 38.9 % (35.4-49); HEMOGLOBIN 13.1 GM/dL (11.7-16.9); LYMPH % 21.6 % (8-40); MCH 33.9 pg (25.7-33.7); MCHC 33.6 g/dl (32.0-35.9); MEAN CELL VOLUME 100.8 fl (80-96); MEAN PLT VOLUME 10.3 fl (7.5-11.1); MONO % 11.2 % (3.8-10.2); NEUT % 56.5 % (42.8-82.8); PLATELET COUNT 144 10^3/uL (134-434); RBC 3.86 M/mm3 (4.00-5.60); RDW 13.3 % (11.9-15.9); WHITE BLOOD COUNT 7.1 K/mm3 (4.0-10.0)
[2024-01-15 07:50] LABS: POTASSIUM 4.4 mmol/L (3.5-5.1)
[2024-01-15 07:59] LABS: BILIRUBIN,TOTAL 0.6 mg/dL (0.2-1); CALCIUM 9.5 mg/dL (8.5-10.1); TOT PROT 7.8 g/dl (6.4-8.2)
[2024-01-15 08:00] LABS: ALBUMIN 3.7 g/dl (3.4-5.0); MAGNESIUM 2.4 mg/dL (1.8-2.4)
[2024-01-15 08:01] LABS: CREATININE 1.2 mg/dL (0.55-1.3)
[2024-01-15] MEDS: FUROSEMIDE 40 MG/4 ML INJECTABLE VIAL IVPUSH SCH (10:37)
[2024-01-16 08:28] LABS: BASO % 0.7 % (0-2.0); EOS % 11.7 % (0-4.5); HEMATOCRIT 36.9 % (35.4-49); HEMOGLOBIN 12.6 GM/dL (11.7-16.9); LYMPH % 25.1 % (8-40); MCH 33.9 pg (25.7-33.7); MCHC 34.1 g/dl (32.0-35.9); MEAN CELL VOLUME 99.4 fl (80-96); MEAN PLT VOLUME 10.7 fl (7.5-11.1); MONO % 11.3 % (3.8-10.2); NEUT % 51.2 % (42.8-82.8); PLATELET COUNT 145 10^3/uL (134-434); RBC 3.71 M/mm3 (4.00-5.60); RDW 13.4 % (11.9-15.9); WHITE BLOOD COUNT 6.4 K/mm3 (4.0-10.0)
[2024-01-16 08:46] LABS: POTASSIUM 4.6 mmol/L (3.5-5.1)
[2024-01-16 08:50] LABS: ALBUMIN 3.7 g/dl (3.4-5.0); BLOOD UREA NITROGEN 28.6 mg/dL (7-18); MAGNESIUM 1.8 mg/dL (1.8-2.4)
[2024-01-16 08:53] LABS: CREATININE 1.2 mg/dL (0.55-1.3); PHOSPHOROUS 3.6 mg/dL (2.5-4.9)
[2024-01-16 08:54] LABS: BILIRUBIN,TOTAL 0.7 mg/dL (0.2-1); TOT PROT 7.5 g/dl (6.4-8.2)
[2024-01-16 12:33] VITALS: BP 165/88; PULSE 78; RESP 24; TEMP 98.1
== END 2024-01-16 12:30 | disposition home or self-care (01) | DRG 194 ==
LOC: JER 11:46 → JERBED 14:22 → OBSVTOIN 01-11 10:46 → J4W 01-11 20:18
PROVIDERS: ADMIT Internal Medicine; ATTEND Internal Medicine
DX: I11.0 Hypertensive heart disease with heart failure (principal); E11.42 Type 2 diabetes mellitus with diabetic polyneuropathy; G20.A1 Parkinson's disease without dyskinesia, without mention of fluctuations; F25.0 Schizoaffective disorder, bipolar type; E78.5 Hyperlipidemia, unspecified; I25.10 Atherosclerotic heart disease of native coronary artery without angina pectoris; J45.909 Unspecified asthma, uncomplicated; K74.60 Unspecified cirrhosis of liver; N40.0 Benign prostatic hyperplasia without lower urinary tract symptoms; I50.33 Acute on chronic diastolic (congestive) heart failure
CPT/HCPCS: 36415; 71045-TC-FY; 80053; 82607; 82746; 83735; 83880; 84100; 84439; 84443; 84484; 85025; 85027; 86682; 93005; 93010; 93306-TC; 93970-TC; 97116-GP; 97162-GP; 99285-25; G0378

== ENCOUNTER 2024-02-06 13:15 | Observation (INO) | payer OTHER ==
[2024-02-06 15:08] LABS: BASO % 0.9 % (0-2.0); EOS % 6.9 % (0-4.5); HEMATOCRIT 37.3 % (35.4-49); HEMOGLOBIN 12.3 GM/dL (11.7-16.9); LYMPH % 23.3 % (8-40); MCH 32.9 pg (25.7-33.7); MEAN CELL VOLUME 99.7 fl (80-96); MEAN PLT VOLUME 9.8 fl (7.5-11.1); MONO % 10.8 % (3.8-10.2); NEUT % 58.1 % (42.8-82.8); PLATELET COUNT 159 10^3/uL (134-434); RBC 3.74 M/mm3 (4.00-5.60); RDW 13.2 % (11.9-15.9)
[2024-02-06 15:27] LABS: CHLORIDE 108 mmol/L (98-107); POTASSIUM 4.1 mmol/L (3.5-5.1); SODIUM 144 mmol/L (136-145)
[2024-02-06 15:29] LABS: CALCIUM 9.9 mg/dL (8.5-10.1)
[2024-02-06 15:30] LABS: ANION GAP 8 mmol/L (4-13); BLOOD UREA NITROGEN 29.3 mg/dL (7-18); CO2 28 mmol/L (21-32); GLUCOSE,RANDOM 103 mg/dL (74-106)
[2024-02-06 15:32] LABS: SGPT/ALT 8 U/L (13-61)
[2024-02-06 15:33] LABS: CREATININE 1.4 mg/dL (0.55-1.3); SGOT/AST 28 U/L (15-37)
[2024-02-06 15:34] LABS: BILIRUBIN,TOTAL 0.8 mg/dL (0.2-1); TOT PROT 8.4 g/dl (6.4-8.2)
[2024-02-06 15:35] LABS: ALK PHOS 91 U/L (45-117)
[2024-02-06 17:56] LABS: PH,URINE 5.5 (5.0-8.0); URINE APPEARANCE CLEAR; URINE BILIRUBIN NEGATIVE (NEGATIVE); URINE COLOR YELLOW; URINE GLUCOSE (UA) NEGATIVE (NEGATIVE); URINE KETONE NEGATIVE (NEGATIVE); URINE LEUK ESTERASE NEGATIVE (NEGATIVE); URINE NITRITE NEGATIVE (NEGATIVE); URINE PROTEIN NEGATIVE (NEGATIVE); URINE UROBILINOGEN 0.2 mg/dL (0.2-1.0)
[2024-02-06 23:05] LABS: METHADONE, UR NEGATIVE (NEGATIVE); URINE BENZODIAZEPINES NEGATIVE (NEGATIVE)
[2024-02-06 23:06] LABS: COCAINE, UR NEGATIVE (NEGATIVE); OPIATES, URI NEGATIVE (NEGATIVE); PHENCYCLIDINE,URINE NEGATIVE (NEGATIVE); URINE AMPHETAMINES NEGATIVE (NEGATIVE); URINE BARBITURATES NEGATIVE (NEGATIVE)
[2024-02-07 05:59] VITALS: BMI 37.5
[2024-02-07] MEDS: CARBIDOPA/LEVODOPA 25/100 TABLET (FP) PO SCH (06:41)
[2024-02-07] MEDS: LOSARTAN POTASSIUM 50 MG TABLET PO ONE (06:41)
[2024-02-07] MEDS ORDERED: hydrALAZINE HCL 20 MG/ML VIAL IVPUSH PRN (07:25)
[2024-02-07] MEDS: TAMSULOSIN HCL 0.4 MG CAP PO SCH (08:57)
[2024-02-07 09:02] LABS: BASO % 0.7 % (0-2.0); EOS % 6.9 % (0-4.5); LYMPH % 17.4 % (8-40); MCH 33.3 pg (25.7-33.7); MCHC 33.4 g/dl (32.0-35.9); MEAN CELL VOLUME 99.7 fl (80-96); MEAN PLT VOLUME 9.4 fl (7.5-11.1); MONO % 9.2 % (3.8-10.2); NEUT % 65.8 % (42.8-82.8); PLATELET COUNT 147 10^3/uL (134-434); RBC 3.61 M/mm3 (4.00-5.60); RDW 13.3 % (11.9-15.9); WHITE BLOOD COUNT 7.9 K/mm3 (4.0-10.0)
[2024-02-07] MEDS: ASPIRIN COATED 81 MG TABLET.EC PO SCH (09:13)
[2024-02-07] MEDS: hydrALAZINE HCL 50 MG TABLET (FP) PO SCH ×2 (09:14→14:56)
[2024-02-07] MEDS: FUROSEMIDE 20 MG TABLET (FP) PO SCH (09:14)
[2024-02-07] MEDS: LOSARTAN POTASSIUM 50 MG TABLET PO SCH (09:14)
[2024-02-07] MEDS: POTASSIUM CHLORIDE TABS 10 MEQ TABLET.ER (FP) PO SCH (09:15)
[2024-02-07] MEDS: PANTOPRAZOLE 40 MG TABLET PO SCH (09:15)
[2024-02-07] MEDS: ENOXAPARIN NA (PORCINE) 40 MG/0.4 ML DISP.SYRIN SQ SCH (09:16)
[2024-02-07 09:29] LABS: POTASSIUM 3.9 mmol/L (3.5-5.1)
[2024-02-07 09:33] LABS: ALBUMIN 3.9 g/dl (3.4-5.0); BLOOD UREA NITROGEN 24.2 mg/dL (7-18); CALCIUM 9.8 mg/dL (8.5-10.1); MAGNESIUM 2.1 mg/dL (1.8-2.4)
[2024-02-07 09:36] LABS: PHOSPHOROUS 3.9 mg/dL (2.5-4.9)
[2024-02-07 09:37] LABS: CREATININE 1.1 mg/dL (0.55-1.3)
[2024-02-07 09:38] LABS: BILIRUBIN,TOTAL 0.8 mg/dL (0.2-1); TOT PROT 7.8 g/dl (6.4-8.2)
[2024-02-07] MEDS ORDERED: LOSARTAN POTASSIUM 50 MG TABLET PO SCH (10:00)
[2024-02-07] MEDS ORDERED: hydrALAZINE HCL 10 MG TABLET PO PRN (10:44)
[2024-02-07] MEDS: hydrALAZINE HCL 50 MG TABLET (FP) PO ONE (12:33)
[2024-02-07] MEDS: POLYETHYLENE GLYCOL (HEALTHYLAX) 3350 17 GM PACKET PO SCH (18:12)
[2024-02-07] MEDS ORDERED: ACETAMINOPHEN 325 MG TABLET (FP) PO PRN ×2 (18:33→19:12)
[2024-02-07] MEDS ORDERED: [UNRECOGNIZED DRUG - OTHER] IM SCH (18:48)
[2024-02-07] MEDS ORDERED: PALIPERIDONE PALMITATE IM SCH (18:48)
[2024-02-07] MEDS: PATIENT'S OWN MEDICATION (NON-FORMULARY) (Vibegron [Gemtesa] 75 MG Tablet) PO SCH (18:48)
[2024-02-07] MEDS: QUEtiapine FUMARATE 25 MG TABLET PO SCH (21:58)
[2024-02-07] MEDS: SENNOSIDES/DOCUSATE COMBO (SENNA PLUS) TABLET (UD) PO SCH (21:58)
[2024-02-08] MEDS: PALIPERIDONE PALMITATE IM SCH (08:21)
[2024-02-08] MEDS: [UNRECOGNIZED DRUG - OTHER] IM SCH (08:21)
[2024-02-08] MEDS ORDERED: LOSARTAN POTASSIUM 50 MG TABLET PO SCH (10:00)
[2024-02-08] MEDS: METOPROLOL TARTRATE 25 MG TABLET (FP) PO SCH (10:29)
[2024-02-09] MEDS ORDERED: PATIENT'S OWN MEDICATION (NON-FORMULARY) (Vibegron [Gemtesa] 75 MG Tablet) PO SCH (10:00)
[2024-02-09] MEDS: hydrALAZINE HCL 50 MG TABLET (FP) PO SCH (10:42)
[2024-02-09 22:13] VITALS: TEMP 98.4
[2024-02-10 02:06] VITALS: BP 112/81; PULSE 72; RESP 19
== END 2024-02-10 02:10 | disposition home or self-care (01) ==
LOC: JER 13:15 → JERBED 21:28 → J7W 02-07 05:14 → UNDODISOB 02-07 18:44
PROVIDERS: ADMIT Internal Medicine; ATTEND Nurse Practitioner
PROC: 3E023GC Introduction of Other Therapeutic Substance into Muscle, Percutaneous Approach (ICD-10-PCS; principal; 2024-02-06)
DX: G20.A1 Parkinson's disease without dyskinesia, without mention of fluctuations (principal); F02.80 Dementia in other diseases classified elsewhere, unspecified severity, without behavioral disturbance, psychotic disturbance, mood disturbance, and anxiety; F25.9 Schizoaffective disorder, unspecified; I16.0 Hypertensive urgency; B78.9 Strongyloidiasis, unspecified; F19.10 Other psychoactive substance abuse, uncomplicated; E11.9 Type 2 diabetes mellitus without complications; I25.2 Old myocardial infarction; I50.9 Heart failure, unspecified; N40.0 Benign prostatic hyperplasia without lower urinary tract symptoms; K59.00 Constipation, unspecified; Z88.8 Allergy status to other drugs, medicaments and biological substances
CPT/HCPCS: 36415; 70450-TC; 80053; 80307; 81003; 83735; 83880; 84100; 84484; 85025; 93005; 93010; 96372; 97116-GP; 97161-GP; 99285-25; G0378

== ENCOUNTER 2024-03-12 13:10 | Inpatient (IN) | payer OTHER ==
[2024-03-12 14:09] VITALS: BMI 36.9
[2024-03-12] MEDS ORDERED: BENZOCAINE/MENTHOL (CHLORASEPTIC ) LOZENGE MM PRN (14:47)
[2024-03-12] MEDS ORDERED: LOPERAMIDE HCL 2 MG CAPSULE PO PRN (14:47)
[2024-03-12] MEDS ORDERED: guaiFENesin 600 MG TABLET.ER (FP) PO PRN (14:47)
[2024-03-12] MEDS ORDERED: MAG HYDROX/AL HYDROX/SIMETH 30 ML UNIT-DOSE CUP PO PRN (14:47)
[2024-03-12] MEDS ORDERED: ACETAMINOPHEN 325 MG TABLET (FP) PO PRN (14:47)
[2024-03-12] MEDS ORDERED: NICOTINE POLACRILEX 2 MG LOZENGE BC PRN (14:47)
[2024-03-12] MEDS ORDERED: BENZONATATE 200 MG CAPSULE PO PRN (14:47)
[2024-03-12] MEDS ORDERED: MAGNESIUM HYDROX 2400MG/30ML ORAL SUSPENSION 30 ML CUP PO PRN (14:47)
[2024-03-12] MEDS ORDERED: NICOTINE POLACRILEX 2 MG GUM BUC PRN (14:47)
[2024-03-12] MEDS ORDERED: IBUPROFEN 400 MG TABLET (FP) PO PRN (14:47)
[2024-03-12] MEDS: THIAMINE 100 MG TABLET PO SCH (21:34)
[2024-03-12] MEDS: MELATONIN 5 MG TABLETS PO PRN (21:34)
[2024-03-13] MEDS: ASPIRIN COATED 81 MG TABLET.EC PO SCH (09:48)
[2024-03-13] MEDS: PANTOPRAZOLE 40 MG TABLET PO SCH (09:49)
[2024-03-13] MEDS: PRENATAL VITAMINS W/ FOLIC ACID TABLET (FP) PO SCH (09:49)
[2024-03-13] MEDS: IBUPROFEN 600 MG TABLET (FP) PO PRN (09:51)
[2024-03-13] MEDS: hydrALAZINE HCL 50 MG TABLET (FP) PO SCH (10:55)
[2024-03-13] MEDS: CARBIDOPA/LEVODOPA 25/100 TABLET (FP) PO SCH (10:56)
[2024-03-13] MEDS: LOSARTAN POTASSIUM 50 MG TABLET PO SCH (12:06)
[2024-03-13] MEDS: cloNIDine HCL 0.1 MG TABLET PO SCH (12:06)
[2024-03-13 12:18] LABS: HEMATOCRIT 35.8 % (35.4-49); HEMOGLOBIN 11.7 GM/dL (11.7-16.9); MCH 31.4 pg (25.7-33.7); MCHC 32.7 g/dl (32.0-35.9); MEAN PLT VOLUME 9.9 fl (7.5-11.1); PLATELET COUNT 130 10^3/uL (134-434); RBC 3.73 M/mm3 (4.00-5.60); RDW 13.7 % (11.9-15.9); WHITE BLOOD COUNT 6.6 K/mm3 (4.0-10.0)
[2024-03-13 12:19] LABS: CHLORIDE 102 mmol/L (98-107); POTASSIUM 4.3 mmol/L (3.5-5.1); SODIUM 138 mmol/L (136-145)
[2024-03-13 12:24] LABS: CALCIUM 9.1 mg/dL (8.5-10.1)
[2024-03-13 12:25] LABS: ALBUMIN 3.6 g/dl (3.4-5.0); ANION GAP 8 mmol/L (4-13); BLOOD UREA NITROGEN 22.1 mg/dL (7-18); CO2 28 mmol/L (21-32); GLUCOSE,RANDOM 129 mg/dL (74-106)
[2024-03-13 12:28] LABS: CREATININE 1.2 mg/dL (0.55-1.3); SGOT/AST 22 U/L (15-37); SGPT/ALT 28 U/L (13-61)
[2024-03-13 12:30] LABS: BILIRUBIN,TOTAL 0.6 mg/dL (0.2-1); TOT PROT 7.4 g/dl (6.4-8.2)
[2024-03-13 12:31] LABS: ALK PHOS 93 U/L (45-117)
[2024-03-13] MEDS: METOPROLOL TARTRATE 25 MG TABLET (FP) PO SCH (21:11)
[2024-03-13] MEDS: TAMSULOSIN HCL 0.4 MG CAP PO SCH (21:11)
[2024-03-13] MEDS: QUEtiapine FUMARATE 25 MG TABLET PO SCH (21:46)
[2024-03-14] MEDS: FUROSEMIDE 40 MG TABLET (FP) PO SCH (09:54)
[2024-03-14] MEDS: TAMSULOSIN HCL 0.4 MG CAP PO SCH (21:51)
[2024-03-14] MEDS: POLYETHYLENE GLYCOL (HEALTHYLAX) 3350 17 GM PACKET PO PRN (21:55)
[2024-03-14] MEDS ORDERED: TAMSULOSIN HCL 0.4 MG CAP PO SCH ×2 (22:00)
[2024-03-15 09:59] VITALS: RESP 18
[2024-03-15] MEDS: ALBUTEROL SO4 HFA INHALER IH PRN (10:00)
[2024-03-15] MEDS: LOSARTAN POTASSIUM 50 MG TABLET PO ONE (14:26)
[2024-03-15] MEDS: LACTULOSE 20 GM/30 ML UDC (FOR ORAL USE ONLY) PO SCH (14:26)
[2024-03-15] MEDS: TAMSULOSIN HCL 0.4 MG CAP PO SCH (17:29)
[2024-03-16 06:40] VITALS: BP 176/79; PULSE 68; TEMP 97.5
[2024-03-16] MEDS: amLODIPine BESYLATE 5 MG TABLET (FP) PO ONE (07:20)
[2024-03-16] MEDS: LOSARTAN POTASSIUM 50 MG TABLET PO SCH (11:32)
== END 2024-03-16 11:41 | disposition left against medical advice (07) | DRG 770 ==
LOC: YASAS 13:10 → Y3E 16:46 → Y3NR 03-13 12:50 → Y3W 03-13 12:56
PROVIDERS: ADMIT Psychiatry & Neurology Pain Medicine; ATTEND Psychiatry & Neurology Pain Medicine
PROC: HZ42ZZZ Group Counseling for Substance Abuse Treatment, Cognitive-Behavioral (ICD-10-PCS; principal; 2024-03-12)
DX: F10.20 Alcohol dependence, uncomplicated (principal); F12.20 Cannabis dependence, uncomplicated; F17.210 Nicotine dependence, cigarettes, uncomplicated; F31.9 Bipolar disorder, unspecified; F25.9 Schizoaffective disorder, unspecified; G20.A1 Parkinson's disease without dyskinesia, without mention of fluctuations; I25.10 Atherosclerotic heart disease of native coronary artery without angina pectoris; I11.0 Hypertensive heart disease with heart failure; I50.9 Heart failure, unspecified; I25.2 Old myocardial infarction; J45.909 Unspecified asthma, uncomplicated; M17.0 Bilateral primary osteoarthritis of knee; M19.041 Primary osteoarthritis, right hand; M19.042 Primary osteoarthritis, left hand; E11.9 Type 2 diabetes mellitus without complications; N40.0 Benign prostatic hyperplasia without lower urinary tract symptoms
CPT/HCPCS: 36415; 80053; 80305; 80307; 85027; 86682; 86780; 87811

== ENCOUNTER 2024-05-29 17:45 | Inpatient (IN) | payer OTHER ==
[2024-05-29 18:20] VITALS: BMI 41.8
[2024-05-29] MEDS ORDERED: IBUPROFEN 400 MG TABLET (FP) PO PRN (21:25)
[2024-05-29] MEDS ORDERED: BENZOCAINE/MENTHOL (CHLORASEPTIC ) LOZENGE MM PRN (21:25)
[2024-05-29] MEDS ORDERED: MAG HYDROX/AL HYDROX/SIMETH 30 ML UNIT-DOSE CUP PO PRN (21:25)
[2024-05-29] MEDS ORDERED: BISMUTH SUBSALICYLATE 524 MG/30 ML PO PRN (21:25)
[2024-05-29] MEDS ORDERED: NALOXONE (NARCAN) HCL 4 MG/0.1 ML SPRAY NS PRN (21:25)
[2024-05-29] MEDS ORDERED: ONDANSETRON *ODT* 4 MG TABLET SL PRN (21:25)
[2024-05-29] MEDS ORDERED: BENZONATATE 200 MG CAPSULE PO PRN (21:25)
[2024-05-29] MEDS ORDERED: MAGNESIUM HYDROX 2400MG/30ML ORAL SUSPENSION 30 ML CUP PO PRN (21:25)
[2024-05-29] MEDS ORDERED: LOPERAMIDE HCL 2 MG CAPSULE PO PRN (21:25)
[2024-05-29] MEDS ORDERED: ACETAMINOPHEN 325 MG TABLET (FP) PO PRN (21:25)
[2024-05-29] MEDS ORDERED: guaiFENesin 600 MG TABLET.ER (FP) PO PRN (21:25)
[2024-05-29] MEDS: MELATONIN 5 MG TABLETS PO SCH (22:45)
[2024-05-29] MEDS: THIAMINE 100 MG TABLET PO SCH (22:46)
[2024-05-29] MEDS: IBUPROFEN 600 MG TABLET (FP) PO PRN (22:47)
[2024-05-30] MEDS: PANTOPRAZOLE 40 MG TABLET PO SCH (10:00)
[2024-05-30] MEDS: cloNIDine HCL 0.1 MG TABLET PO SCH (10:00)
[2024-05-30] MEDS: FUROSEMIDE 40 MG TABLET (FP) PO SCH (10:00)
[2024-05-30] MEDS: LOSARTAN POTASSIUM 50 MG TABLET PO SCH (10:00)
[2024-05-30] MEDS: PRENATAL VITAMINS W/ FOLIC ACID TABLET (FP) PO SCH (10:00)
[2024-05-30] MEDS: METOPROLOL TARTRATE 25 MG TABLET (FP) PO SCH (10:00)
[2024-05-30] MEDS: ASPIRIN COATED 81 MG TABLET.EC PO SCH (10:00)
[2024-05-30] MEDS: CARBIDOPA/LEVODOPA 25/100 TABLET (FP) PO SCH (11:10)
[2024-05-30] MEDS: hydrALAZINE HCL 50 MG TABLET (FP) PO SCH (11:11)
[2024-05-30] MEDS: FLU VACCINE (FLULAVAL) PF 45 MCG/0.5 ML SYRINGE 2024-2025 IM ONE (11:17)
[2024-05-30 13:17] LABS: HEMATOCRIT 33.3 % (35.4-49); HEMOGLOBIN 10.7 GM/dL (11.7-16.9); MCH 29.9 pg (25.7-33.7); MEAN CELL VOLUME 93.2 fl (80-96); MEAN PLT VOLUME 10.1 fl (7.5-11.1); PLATELET COUNT 150 10^3/uL (134-434); RBC 3.57 M/mm3 (4.00-5.60); WHITE BLOOD COUNT 6.6 K/mm3 (4.0-10.0)
[2024-05-30 13:45] LABS: CHLORIDE 105 mmol/L (98-107); POTASSIUM 4.5 mmol/L (3.5-5.1); SODIUM 138 mmol/L (136-145)
[2024-05-30 13:49] LABS: ALBUMIN 3.3 g/dl (3.4-5.0); BLOOD UREA NITROGEN 14.4 mg/dL (7-18)
[2024-05-30 13:50] LABS: ANION GAP 6 mmol/L (4-13); CALCIUM 8.6 mg/dL (8.5-10.1); CO2 28 mmol/L (21-32); GLUCOSE,RANDOM 88 mg/dL (74-106)
[2024-05-30 13:52] LABS: CREATININE 1.3 mg/dL (0.55-1.3); SGOT/AST 21 U/L (15-37); SGPT/ALT 23 U/L (13-61)
[2024-05-30 13:54] LABS: BILIRUBIN,TOTAL 0.6 mg/dL (0.2-1); TOT PROT 6.6 g/dl (6.4-8.2)
[2024-05-30 13:55] LABS: ALK PHOS 80 U/L (45-117)
[2024-05-30] MEDS: TAMSULOSIN HCL 0.4 MG CAP PO SCH (22:30)
[2024-05-30] MEDS: QUEtiapine FUMARATE 25 MG TABLET PO SCH (22:30)
[2024-06-01] MEDS: chlordiazePOXIDE HCL 25 MG CAPSULE PO ONE (13:15)
[2024-06-01] MEDS: chlordiazePOXIDE HCL 25 MG CAPSULE PO SCH (17:39)
[2024-06-01] MEDS: chlordiazePOXIDE HCL 25 MG CAPSULE PO PRN (19:47)
[2024-06-02] MEDS: chlordiazePOXIDE HCL 10 MG CAPSULE PO SCH (05:15)
[2024-06-02] MEDS: POLYETHYLENE GLYCOL (HEALTHYLAX) 3350 17 GM PACKET PO PRN (10:24)
[2024-06-02] MEDS: LACTULOSE 20 GM/30 ML UDC (FOR ORAL USE ONLY) PO ONE (11:47)
[2024-06-02] MEDS: ALBUTEROL SO4 HFA INHALER IH PRN (19:44)
[2024-06-03] MEDS ORDERED: chlordiazePOXIDE HCL 10 MG CAPSULE PO PRN ×2 (00:01)
[2024-06-03] MEDS ORDERED: chlordiazePOXIDE HCL 10 MG CAPSULE PO SCH (00:01)
[2024-06-03] MEDS: chlordiazePOXIDE HCL 10 MG CAPSULE PO SCH (05:54)
[2024-06-03] MEDS: FUROSEMIDE 40 MG TABLET (FP) PO SCH (07:53)
[2024-06-03] MEDS: NALOXONE (NYS OPIOID OVERDOSE PROGRAM) 4 MG/0.1 ML SPRAY NS SCH (12:32)
[2024-06-04] MEDS ORDERED: chlordiazePOXIDE HCL 10 MG CAPSULE PO PRN
[2024-06-04] MEDS: chlordiazePOXIDE HCL 10 MG CAPSULE PO ONE (05:57)
[2024-06-04 06:36] VITALS: RESP 18
[2024-06-04 08:56] VITALS: BP 147/73; PULSE 81; TEMP 97.6
== END 2024-06-04 09:25 | disposition home or self-care (01) | DRG 775 ==
LOC: YASAS 17:45 → Y6N 21:22
PROVIDERS: ADMIT Allergy & Immunology; ATTEND Surgery
PROC: HZ2ZZZZ Detoxification Services for Substance Abuse Treatment (ICD-10-PCS; principal; 2024-05-28)
DX: F10.230 Alcohol dependence with withdrawal, uncomplicated (principal); F12.20 Cannabis dependence, uncomplicated; F17.210 Nicotine dependence, cigarettes, uncomplicated; F20.9 Schizophrenia, unspecified; F10.982 Alcohol use, unspecified with alcohol-induced sleep disorder; F10.280 Alcohol dependence with alcohol-induced anxiety disorder; F10.24 Alcohol dependence with alcohol-induced mood disorder; G20.C Parkinsonism, unspecified; I25.10 Atherosclerotic heart disease of native coronary artery without angina pectoris; I11.0 Hypertensive heart disease with heart failure; I50.9 Heart failure, unspecified; I25.2 Old myocardial infarction; J45.909 Unspecified asthma, uncomplicated; K21.9 Gastro-esophageal reflux disease without esophagitis; N40.0 Benign prostatic hyperplasia without lower urinary tract symptoms
CPT/HCPCS: 36415; 80053; 80305; 80307; 85027; 86780; 93005; 93010

== ENCOUNTER 2024-08-21 13:20 | Inpatient (IN) | payer OTHER ==
[2024-08-21 13:59] VITALS: BMI 39.9
[2024-08-21] MEDS ORDERED: guaiFENesin 600 MG TABLET.ER (FP) PO PRN (14:37)
[2024-08-21] MEDS ORDERED: BENZONATATE 200 MG CAPSULE PO PRN (14:37)
[2024-08-21] MEDS ORDERED: POLYETHYLENE GLYCOL (HEALTHYLAX) 3350 17 GM PACKET PO PRN (14:37)
[2024-08-21] MEDS ORDERED: NICOTINE POLACRILEX 2 MG GUM BUC PRN (14:37)
[2024-08-21] MEDS ORDERED: MAGNESIUM HYDROX 2400MG/30ML ORAL SUSPENSION 30 ML CUP PO PRN (14:37)
[2024-08-21] MEDS ORDERED: LOPERAMIDE HCL 2 MG CAPSULE PO PRN (14:37)
[2024-08-21] MEDS ORDERED: NICOTINE POLACRILEX 2 MG LOZENGE BC PRN (14:37)
[2024-08-21] MEDS ORDERED: NALOXONE (NARCAN) HCL 4 MG/0.1 ML SPRAY NS PRN (14:37)
[2024-08-21] MEDS ORDERED: MAG HYDROX/AL HYDROX/SIMETH 30 ML UNIT-DOSE CUP PO PRN (14:37)
[2024-08-21] MEDS: THIAMINE 100 MG TABLET PO SCH (21:12)
[2024-08-21] MEDS: MELATONIN 5 MG TABLETS PO SCH (21:12)
[2024-08-21] MEDS: hydrALAZINE HCL 50 MG TABLET (FP) PO SCH (21:12)
[2024-08-21] MEDS: TAMSULOSIN HCL 0.4 MG CAP PO SCH (21:12)
[2024-08-21] MEDS: METOPROLOL TARTRATE 25 MG TABLET (FP) PO SCH (21:12)
[2024-08-21] MEDS: CARBIDOPA/LEVODOPA 25/100 TABLET (FP) PO SCH (21:12)
[2024-08-22] MEDS: cloNIDine HCL 0.1 MG TABLET PO ONE (06:23)
[2024-08-22] MEDS ORDERED: PRENATAL VITAMINS W/ FOLIC ACID TABLET (FP) PO SCH (10:00)
[2024-08-22] MEDS: PANTOPRAZOLE 40 MG TABLET PO SCH (10:33)
[2024-08-22] MEDS: LOSARTAN POTASSIUM 50 MG TABLET PO SCH (10:33)
[2024-08-22] MEDS: ASPIRIN COATED 81 MG TABLET.EC PO SCH (10:34)
[2024-08-22] MEDS: FUROSEMIDE 40 MG TABLET (FP) PO SCH (10:34)
[2024-08-22] MEDS: ACETAMINOPHEN 325 MG TABLET (FP) PO PRN (10:34)
[2024-08-22 11:44] LABS: HEMOGLOBIN 11.3 GM/dL (11.7-16.9); MCH 29.4 pg (25.7-33.7); MCHC 31.4 g/dl (32.0-35.9); MEAN CELL VOLUME 93.6 fl (80-96); MEAN PLT VOLUME 9.5 fl (7.5-11.1); PLATELET COUNT 166 10^3/uL (134-434); RBC 3.84 M/mm3 (4.00-5.60); RDW 15.4 % (11.9-15.9); WHITE BLOOD COUNT 5.7 K/mm3 (4.0-10.0)
[2024-08-22] MEDS: P-EPHED 60MG/TRIPROLIDI 2.5MG TABLET PO PRN (11:56)
[2024-08-22 12:02] LABS: PH,URINE 6.5 (5.0-8.0); URINE APPEARANCE CLEAR; URINE BILIRUBIN NEGATIVE (NEGATIVE); URINE COLOR YELLOW; URINE GLUCOSE (UA) NEGATIVE (NEGATIVE); URINE KETONE NEGATIVE (NEGATIVE); URINE NITRITE NEGATIVE (NEGATIVE); URINE PROTEIN TRACE (NEGATIVE); URINE UROBILINOGEN 0.2 mg/dL (0.2-1.0)
[2024-08-22 12:03] LABS: URINE LEUK ESTERASE TRACE (NEGATIVE)
[2024-08-22 12:05] LABS: POTASSIUM 4.6 mmol/L (3.5-5.1)
[2024-08-22 12:12] LABS: ALBUMIN 3.3 g/dl (3.4-5.0); BLOOD UREA NITROGEN 18.5 mg/dL (7-18); CALCIUM 8.8 mg/dL (8.5-10.1)
[2024-08-22 12:16] LABS: CREATININE 1.2 mg/dL (0.55-1.3)
[2024-08-22 12:17] LABS: BILIRUBIN,TOTAL 0.8 mg/dL (0.2-1); TOT PROT 6.8 g/dl (6.4-8.2)
[2024-08-22 13:49] LABS: URINE RBC 0-2 /hpf (0-4); URINE WBC FEW (NEGATIVE)
[2024-08-22] MEDS: cloNIDine HCL 0.1 MG TABLET PO SCH (21:35)
[2024-08-22] MEDS: guaiFENesin 200 MG/10 ML 10 ML UNIT-DOSE CUPS PO PRN (21:37)
[2024-08-23] MEDS: IBUPROFEN 600 MG TABLET (FP) PO PRN (10:15)
[2024-08-23] MEDS: LACTULOSE 20 GM/30 ML UDC (FOR ORAL USE ONLY) PO PRN (13:24)
[2024-08-23] MEDS: hydrALAZINE HCL 50 MG TABLET (FP) PO SCH (17:46)
[2024-08-24] MEDS: LOSARTAN POTASSIUM 50 MG TABLET PO SCH (05:54)
[2024-08-24] MEDS: ALBUTEROL SO4 HFA INHALER IH PRN (10:43)
[2024-08-24] MEDS: BENZOCAINE/MENTHOL (CHLORASEPTIC ) LOZENGE MM PRN (15:29)
[2024-08-24] MEDS: IBUPROFEN 400 MG TABLET (FP) PO PRN (15:30)
[2024-08-24] MEDS: DOCUSATE SODIUM 100 MG CAPSULE (FP) PO PRN (21:32)
[2024-08-25] MEDS: AMOXICILLIN 500 MG CAPSULE (FP) PO SCH (13:57)
[2024-08-26] MEDS: BISACODYL 5 MG TABLET.DR (FP) PO PRN (10:22)
[2024-08-27 05:38] VITALS: RESP 17
[2024-08-27 06:53] VITALS: TEMP 97.5
[2024-08-27 09:13] VITALS: BP 170/80; PULSE 75
== END 2024-08-27 11:55 | disposition home or self-care (01) | DRG 772 ==
LOC: YASAS 13:20 → Y3W 18:06
PROVIDERS: ADMIT Psychiatry & Neurology Pain Medicine; ATTEND Psychiatry & Neurology Pain Medicine
PROC: HZ42ZZZ Group Counseling for Substance Abuse Treatment, Cognitive-Behavioral (ICD-10-PCS; principal; 2024-08-21)
DX: F10.20 Alcohol dependence, uncomplicated (principal); F12.20 Cannabis dependence, uncomplicated; F17.210 Nicotine dependence, cigarettes, uncomplicated; F25.9 Schizoaffective disorder, unspecified; F31.9 Bipolar disorder, unspecified; E78.5 Hyperlipidemia, unspecified; E11.9 Type 2 diabetes mellitus without complications; G20.A1 Parkinson's disease without dyskinesia, without mention of fluctuations; G62.9 Polyneuropathy, unspecified; I25.10 Atherosclerotic heart disease of native coronary artery without angina pectoris; I11.0 Hypertensive heart disease with heart failure; I50.9 Heart failure, unspecified; I25.2 Old myocardial infarction; J40 Bronchitis, not specified as acute or chronic; M17.0 Bilateral primary osteoarthritis of knee; M19.041 Primary osteoarthritis, right hand; M19.042 Primary osteoarthritis, left hand; N40.0 Benign prostatic hyperplasia without lower urinary tract symptoms
CPT/HCPCS: 0241U-QW; 36415; 71045-TC-FY; 80053; 80305; 80307; 81003; 82962; 85027; 86780; 87811; 93005; 93010

== ENCOUNTER 2024-11-28 15:01 | Inpatient (IN) | payer OTHER ==
[2024-11-28 15:30] VITALS: BMI 41.6
[2024-11-28] MEDS ORDERED: IBUPROFEN 400 MG TABLET (FP) PO PRN (17:04)
[2024-11-28] MEDS ORDERED: MAG HYDROX/AL HYDROX/SIMETH 30 ML UNIT-DOSE CUP PO PRN (17:04)
[2024-11-28] MEDS ORDERED: POLYETHYLENE GLYCOL (HEALTHYLAX) 3350 17 GM PACKET PO PRN (17:04)
[2024-11-28] MEDS ORDERED: BISMUTH SUBSALICYLATE 524 MG/30 ML PO PRN (17:04)
[2024-11-28] MEDS ORDERED: LOPERAMIDE HCL 2 MG CAPSULE PO PRN (17:04)
[2024-11-28] MEDS ORDERED: DICYCLOMINE HCL 10 MG CAPSULE PO PRN (17:04)
[2024-11-28] MEDS ORDERED: BENZONATATE 200 MG CAPSULE PO PRN (17:04)
[2024-11-28] MEDS ORDERED: BENZOCAINE/MENTHOL (CHLORASEPTIC ) LOZENGE MM PRN (17:04)
[2024-11-28] MEDS ORDERED: MAGNESIUM HYDROX 2400MG/30ML ORAL SUSPENSION 30 ML CUP PO PRN (17:04)
[2024-11-28] MEDS ORDERED: METHOCARBAMOL 500 MG TABLET PO PRN (17:04)
[2024-11-28] MEDS ORDERED: NALOXONE (NARCAN) HCL 4 MG/0.1 ML SPRAY NS PRN (17:04)
[2024-11-28] MEDS ORDERED: ONDANSETRON *ODT* 4 MG TABLET SL PRN (17:04)
[2024-11-28] MEDS ORDERED: guaiFENesin 600 MG TABLET.ER (FP) PO PRN (17:04)
[2024-11-28] MEDS ORDERED: cloNIDine HCL 0.1 MG TABLET ONE (20:18)
[2024-11-28] MEDS: cloNIDine HCL 0.1 MG TABLET PO ONE (20:22)
[2024-11-28] MEDS: THIAMINE 100 MG TABLET PO SCH (21:50)
[2024-11-28] MEDS: hydrALAZINE HCL 25 MG TABLET (FP) PO ONE (21:50)
[2024-11-28] MEDS: ASPIRIN 81 MG CHEWABLE TABLETS PO ONE (21:50)
[2024-11-28] MEDS: LOSARTAN POTASSIUM 50 MG TABLET PO ONE (21:51)
[2024-11-28] MEDS: MELATONIN 5 MG TABLETS PO SCH (23:04)
[2024-11-29] MEDS: cloNIDine HCL 0.1 MG TABLET PO PRN (07:25)
[2024-11-29] MEDS ORDERED: ALBUTEROL SO4 HFA INHALER IH PRN (09:27)
[2024-11-29] MEDS: PRENATAL VITAMINS W/ FOLIC ACID TABLET (FP) PO SCH (09:44)
[2024-11-29] MEDS: METOPROLOL TARTRATE 25 MG TABLET (FP) PO SCH (09:45)
[2024-11-29] MEDS: PANTOPRAZOLE 40 MG TABLET PO SCH (09:45)
[2024-11-29] MEDS: ASPIRIN COATED 81 MG TABLET.EC PO SCH (09:45)
[2024-11-29] MEDS: FUROSEMIDE 40 MG TABLET (FP) PO SCH (09:45)
[2024-11-29] MEDS: LOSARTAN POTASSIUM 50 MG TABLET PO SCH (09:45)
[2024-11-29 11:25] LABS: HEMOGLOBIN 11.2 g/dL (13.7-17.5); MCHC 31.1 g/dl (32.3-36.5); MEAN CELL VOLUME 90.7 fl (79.0-92.2); PLATELET COUNT 200 x10^3/uL (163-337); RDW 15.9 % (12.2-16.4)
[2024-11-29] MEDS: FLU VACCINE (FLULAVAL) PF 45 MCG/0.5 ML SYRINGE 2024-2025 IM ONE (11:38)
[2024-11-29 14:04] LABS: CHLORIDE 100 mmol/L (98-107); POTASSIUM 4.5 mmol/L (3.5-5.1); SODIUM 133 mmol/L (136-145)
[2024-11-29 14:12] LABS: CALCIUM 8.8 mg/dL (8.5-10.1)
[2024-11-29 14:13] LABS: ANION GAP 6 mmol/L (4-13); BLOOD UREA NITROGEN 14.9 mg/dL (7-18); CO2 27 mmol/L (21-32); GLUCOSE,RANDOM 97 mg/dL (74-106)
[2024-11-29 14:15] LABS: SGOT/AST 23 U/L (15-37); SGPT/ALT 20 U/L (13-61)
[2024-11-29 14:16] LABS: CREATININE 0.9 mg/dL (0.55-1.3)
[2024-11-29 14:17] LABS: BILIRUBIN,TOTAL 0.4 mg/dL (0.2-1); TOT PROT 6.4 g/dl (6.4-8.2)
[2024-11-29 14:18] LABS: ALK PHOS 87 U/L (45-117)
[2024-11-29] MEDS: FUROSEMIDE 20 MG TABLET (FP) PO ONE (16:04)
[2024-11-29] MEDS: hydrALAZINE HCL 25 MG TABLET (FP) PO ONE (16:04)
[2024-11-29] MEDS: LOSARTAN POTASSIUM 50 MG TABLET PO ONE (16:04)
[2024-11-29] MEDS ORDERED: hydrALAZINE HCL 50 MG TABLET (FP) PO SCH (18:00)
[2024-11-29] MEDS: hydrALAZINE HCL 50 MG TABLET (FP) PO SCH (22:24)
[2024-11-29] MEDS: cloNIDine HCL 0.1 MG TABLET PO SCH (22:24)
[2024-11-29] MEDS: CARBIDOPA/LEVODOPA 25/250 TABLET (FP) PO SCH (22:24)
[2024-11-29] MEDS: TAMSULOSIN HCL 0.4 MG CAP PO SCH (22:24)
[2024-11-29] MEDS: ACETAMINOPHEN 325 MG TABLET (FP) PO PRN (22:26)
[2024-11-30] MEDS: IBUPROFEN 600 MG TABLET (FP) PO PRN (09:49)
[2024-11-30] MEDS: hydrOXYzine PAMOATE 25 MG CAPSULE (FP) PO PRN (09:49)
[2024-11-30] MEDS: ASPIRIN COATED 81 MG TABLET.EC PO SCH (09:49)
[2024-11-30] MEDS: LOSARTAN POTASSIUM 50 MG TABLET PO SCH (09:50)
[2024-11-30] MEDS: FUROSEMIDE 20 MG TABLET (FP) PO ONE (09:50)
[2024-11-30] MEDS ORDERED: PANTOPRAZOLE 40 MG TABLET PO SCH (10:00)
[2024-11-30 13:36] VITALS: BP 153/75; PULSE 67; RESP 18; TEMP 97.7
[2024-11-30] MEDS ORDERED: METOPROLOL TARTRATE 25 MG TABLET (FP) PO SCH (14:00)
== END 2024-11-30 14:03 | disposition home or self-care (01) | DRG 774 ==
LOC: YASAS 15:01 → Y6N 20:08
PROVIDERS: ADMIT Allergy & Immunology; ATTEND Allergy & Immunology
PROC: HZ2ZZZZ Detoxification Services for Substance Abuse Treatment (ICD-10-PCS; principal; 2024-11-28)
DX: F10.230 Alcohol dependence with withdrawal, uncomplicated (principal); F14.20 Cocaine dependence, uncomplicated; F16.10 Hallucinogen abuse, uncomplicated; F12.20 Cannabis dependence, uncomplicated; F17.210 Nicotine dependence, cigarettes, uncomplicated; F20.9 Schizophrenia, unspecified; F31.9 Bipolar disorder, unspecified; F10.282 Alcohol dependence with alcohol-induced sleep disorder; G62.9 Polyneuropathy, unspecified; G20.C Parkinsonism, unspecified; I25.10 Atherosclerotic heart disease of native coronary artery without angina pectoris; I11.0 Hypertensive heart disease with heart failure; I50.9 Heart failure, unspecified; I25.2 Old myocardial infarction; E78.5 Hyperlipidemia, unspecified; J45.909 Unspecified asthma, uncomplicated; M15.9 Polyosteoarthritis, unspecified; N40.0 Benign prostatic hyperplasia without lower urinary tract symptoms
CPT/HCPCS: 36415; 80053; 80305; 80307; 85027; 86780; 90656; 93005; 93010

== ENCOUNTER 2025-01-24 14:32 | Inpatient (IN) | payer OTHER ==
[2025-01-24 15:03] VITALS: BMI 41.3
[2025-01-24] MEDS ORDERED: MAG HYDROX/AL HYDROX/SIMETH 30 ML UNIT-DOSE CUP PO PRN (16:18)
[2025-01-24] MEDS ORDERED: guaiFENesin 600 MG TABLET.ER (FP) PO PRN (16:18)
[2025-01-24] MEDS ORDERED: BENZONATATE 200 MG CAPSULE PO PRN (16:18)
[2025-01-24] MEDS ORDERED: ACETAMINOPHEN 325 MG TABLET (FP) PO PRN (16:18)
[2025-01-24] MEDS ORDERED: LOPERAMIDE HCL 2 MG CAPSULE PO PRN (16:18)
[2025-01-24] MEDS ORDERED: NALOXONE (NARCAN) HCL 4 MG/0.1 ML SPRAY NS PRN (16:18)
[2025-01-24] MEDS ORDERED: IBUPROFEN 400 MG TABLET (FP) PO PRN (16:18)
[2025-01-24] MEDS ORDERED: BENZOCAINE/MENTHOL (CHLORASEPTIC ) LOZENGE MM PRN (16:18)
[2025-01-24] MEDS ORDERED: MAGNESIUM HYDROX 2400MG/30ML ORAL SUSPENSION 30 ML CUP PO PRN (16:18)
[2025-01-24] MEDS: PRENATAL VITAMINS W/ FOLIC ACID TABLET (FP) PO SCH (18:30)
[2025-01-24] MEDS: TAMSULOSIN HCL 0.4 MG CAP PO SCH (22:12)
[2025-01-24] MEDS: MELATONIN 5 MG TABLETS PO SCH (22:13)
[2025-01-24] MEDS: LACTULOSE 20 GM/30 ML UDC (FOR ORAL USE ONLY) PO SCH (22:13)
[2025-01-24] MEDS: THIAMINE 100 MG TABLET PO SCH (22:13)
[2025-01-24] MEDS: hydrALAZINE HCL 50 MG TABLET (FP) PO SCH (22:31)
[2025-01-24] MEDS: CARBIDOPA/LEVODOPA 25/250 TABLET (FP) PO SCH (22:32)
[2025-01-25] MEDS: hydrALAZINE HCL 50 MG TABLET (FP) PO ONE (07:29)
[2025-01-25] MEDS: IBUPROFEN 600 MG TABLET (FP) PO PRN (10:19)
[2025-01-25] MEDS: ASPIRIN COATED 81 MG TABLET.EC PO SCH (10:20)
[2025-01-25] MEDS: FUROSEMIDE 40 MG TABLET (FP) PO SCH (10:20)
[2025-01-25] MEDS: METOPROLOL TARTRATE 25 MG TABLET (FP) PO SCH (10:20)
[2025-01-25] MEDS: PANTOPRAZOLE 40 MG TABLET PO SCH (10:20)
[2025-01-25 12:50] LABS: MCHC 31.3 g/dl (32.3-36.5); MEAN CELL VOLUME 93.7 fl (79.0-92.2); MEAN PLT VOLUME 11.5 fl (9.4-12.4); RDW 15.8 % (12.2-16.4)
[2025-01-25 14:29] LABS: SYPHILIS W/ RPR CONF NON-REACTIVE (NONREACTIVE)
[2025-01-25 14:56] LABS: HCV DIAGNOSTIC IN-HOUSE W/RFLX NON-REACTIVE (NONREACTIVE)
[2025-01-25 14:58] LABS: ALK PHOS 108.0 U/L (45-117); CO2 30.0 mmol/L (21-32); CREATININE 0.9 mg/dL (0.55-1.3); GLUCOSE,RANDOM 149.0 mg/dL (74-106); SGOT/AST 27.0 U/L (15-37); SGPT/ALT 15.0 U/L (13-61); TOT PROT 6.5 g/dl (6.4-8.2)
[2025-01-25] MEDS: hydrALAZINE HCL 50 MG TABLET (FP) PO SCH (22:06)
[2025-01-25] MEDS: POLYETHYLENE GLYCOL (HEALTHYLAX) 3350 17 GM PACKET PO PRN (22:07)
[2025-01-26] MEDS: hydrOXYzine PAMOATE 25 MG CAPSULE (FP) PO PRN (10:28)
[2025-01-26] MEDS: BACLOFEN 10 MG TABLET (FP) PO PRN (12:05)
[2025-01-26] MEDS: LIDOCAINE 5% TOPICAL PATCH TP SCH (12:05)
[2025-01-26] MEDS: BACITRACIN ZINC 15 GM TUBE TOPICAL OINTMENT TP SCH (13:55)
[2025-01-26] MEDS: LIDOCAINE PATCH REMOVAL MC SCH (22:20)
[2025-01-28] MEDS: hydrALAZINE HCL 50 MG TABLET (FP) PO ONE (07:43)
[2025-01-28] MEDS: FUROSEMIDE 20 MG TABLET (FP) PO ONE (07:43)
[2025-01-28 12:45] LABS: URINE APPEARANCE CLEAR; URINE BILIRUBIN NEGATIVE (NEGATIVE); URINE COLOR YELLOW; URINE GLUCOSE (UA) NEGATIVE (NEGATIVE); URINE KETONE NEGATIVE (NEGATIVE)
[2025-01-28 12:46] LABS: URINE LEUK ESTERASE NEGATIVE (NEGATIVE); URINE NITRITE NEGATIVE (NEGATIVE); URINE PROTEIN 1+ (NEGATIVE); URINE UROBILINOGEN 0.2 mg/dL (0.2-1.0)
[2025-01-28] MEDS: ALBUTEROL SO4 HFA INHALER IH PRN (18:51)
[2025-01-28] MEDS: hydrALAZINE HCL 50 MG TABLET (FP) PO SCH (21:31)
[2025-01-29] MEDS: FUROSEMIDE 40 MG TABLET (FP) PO SCH (06:40)
[2025-01-30] MEDS: NIFEdipine E.R 60 MG TABLET PO SCH (10:33)
[2025-01-31 19:50] VITALS: BP 120/86; PULSE 82; RESP 17; TEMP 98
== END 2025-01-31 19:55 | disposition left against medical advice (07) | DRG 770 ==
LOC: YASAS 14:32 → Y3E 19:16
PROVIDERS: ADMIT Neuromusculoskeletal Medicine & OMM; ATTEND Psychiatry & Neurology Pain Medicine
PROC: HZ42ZZZ Group Counseling for Substance Abuse Treatment, Cognitive-Behavioral (ICD-10-PCS; principal; 2025-01-24)
DX: F10.20 Alcohol dependence, uncomplicated (principal); F14.20 Cocaine dependence, uncomplicated; F12.20 Cannabis dependence, uncomplicated; Z72.0 Tobacco use; F31.9 Bipolar disorder, unspecified; F25.9 Schizoaffective disorder, unspecified; E78.5 Hyperlipidemia, unspecified; E11.9 Type 2 diabetes mellitus without complications; G20.C Parkinsonism, unspecified; I25.10 Atherosclerotic heart disease of native coronary artery without angina pectoris; I11.0 Hypertensive heart disease with heart failure; I50.9 Heart failure, unspecified; I25.2 Old myocardial infarction; J45.909 Unspecified asthma, uncomplicated; K21.9 Gastro-esophageal reflux disease without esophagitis; M21.611 Bunion of right foot; M15.9 Polyosteoarthritis, unspecified
CPT/HCPCS: 36415; 80053; 80305; 80307; 81003; 85027; 86780; 86803; 87811; 93005; 93010; J0475